=== PATIENT | male | born 1950 | race Caucasian/White ===

== ENCOUNTER → 2019-05-07 11:26 | Outpatient (BNVA) | payer MEDICAID, SELFPAY | PROVIDERS: PCP Nurse Practitioner Family; Visit Provider Nurse Practitioner Family | DX: E11.9 Type 2 diabetes mellitus without complications (principal) | CPT/HCPCS: 80053; 80061; 82044; 83036; 85025 ==

== ENCOUNTER → 2019-10-15 15:58 | Outpatient (BNVA) | payer MEDICAID, SELFPAY | PROVIDERS: PCP Nurse Practitioner Family; Visit Provider Nurse Practitioner Family | DX: I10 Essential (primary) hypertension (principal) | CPT/HCPCS: 80053; 85025 ==

== ENCOUNTER → 2019-12-01 14:51 | Outpatient (BNVA) | payer MEDICAID, SELFPAY | PROVIDERS: PCP Nurse Practitioner Family; Visit Provider Urology | DX: N40.1 Benign prostatic hyperplasia with lower urinary tract symptoms (principal); R97.20 Elevated prostate specific antigen [PSA]; F17.210 Nicotine dependence, cigarettes, uncomplicated | CPT/HCPCS: 81001; 84153 ==

== ENCOUNTER → 2020-05-19 11:14 | Outpatient (BNVA) | payer MEDICAID, SELFPAY | PROVIDERS: PCP Nurse Practitioner Family; Visit Provider Nurse Practitioner Family | DX: R73.9 Hyperglycemia, unspecified (principal); I10 Essential (primary) hypertension; B02.8 Zoster with other complications; F41.9 Anxiety disorder, unspecified; F88 Other disorders of psychological development; E78.2 Mixed hyperlipidemia; L30.4 Erythema intertrigo | CPT/HCPCS: 80053; 80061; 83036; 85025 ==

== ENCOUNTER → 2020-11-30 13:44 | Outpatient (BNVA) | payer MEDICAID, SELFPAY | PROVIDERS: PCP Nurse Practitioner Family; Visit Provider Urology | DX: N40.1 Benign prostatic hyperplasia with lower urinary tract symptoms (principal); R97.20 Elevated prostate specific antigen [PSA] | CPT/HCPCS: 81003; 84153 ==

== ENCOUNTER → 2021-01-09 11:00 | Outpatient (BNVA) | payer MEDICAID, SELFPAY | PROVIDERS: PCP Nurse Practitioner Family; Visit Provider Nurse Practitioner Family | DX: R73.9 Hyperglycemia, unspecified (principal); E78.2 Mixed hyperlipidemia; F88 Other disorders of psychological development; F41.9 Anxiety disorder, unspecified; I10 Essential (primary) hypertension; N40.1 Benign prostatic hyperplasia with lower urinary tract symptoms | CPT/HCPCS: 80053; 80061; 82306; 83036; 84443; 85025 ==

== ENCOUNTER 2021-04-27 17:15 | Emergency (ER) | payer MEDICAID, SELFPAY ==
[2021-04-27 17:37] VITALS: BP 153/83; PULSE 75; RESP 18; TEMP 36.9; O2SAT 96; BMI 29.2
--- NOTE | 2021-04-27 17:54 | XRR_ITS ---
PROCEDURE INFORMATION: Exam: XR Lumbosacral Spine Exam date and time: 04/27/2021 5:54 PM Age: 71 years old Clinical indication: Injury or trauma; Fall; Blunt trauma (contusions or hematomas) TECHNIQUE: Imaging protocol: XR of the lumbosacral spine. Views: 2 or 3 views. COMPARISON: No relevant prior studies available. FINDINGS: Bones/joints: Moderate L5/S1 largely posterior disc space narrowing. Mild productive degenerative endplate changes throughout the spine. Soft tissues: Unremarkable. Vasculature: Scattered aortic atherosclerotic calcifications. XR/XR lumbar spine 2-3V* [id number] IMPRESSION: 1. Moderate L5/S1 largely posterior disc space narrowing. 2. Mild productive degenerative endplate changes throughout the spine. 3. Scattered aortic atherosclerotic calcifications.
--- NOTE | 2021-04-27 17:54 | CTR_ITS ---
PROCEDURE INFORMATION: Exam: CT Head Without Contrast Exam date and time: 04/27/2021 5:54 PM Age: 71 years old Clinical indication: Injury or trauma; Fall; Blunt trauma (contusions or hematomas) TECHNIQUE: Imaging protocol: Computed tomography of the head without contrast. Radiation optimization: All CT scans at this facility use at least one of these dose optimization techniques: automated exposure control; mA and/or kV adjustment per patient size (includes targeted exams where dose is matched to clinical indication); or iterative reconstruction. COMPARISON: No relevant prior studies available. RADIATION DOSE METRICS: Total DLP (mGy-cm): 969.03 FINDINGS: Brain: Mild diffuse white matter disease likely reflecting chronic microvascular ischemic changes. Cerebral ventricles: No ventriculomegaly. Paranasal sinuses: Visualized sinuses are unremarkable. No fluid levels. Mastoid air cells: Visualized mastoid air cells are well aerated. Bones/joints: Unremarkable. No acute fracture. Soft tissues: Unremarkable. CT/CT head wo con* [id number] IMPRESSION: Negative for intracranial hemorrhage or mass effect.
--- NOTE | 2021-04-27 17:54 | XRR_ITS ---
PROCEDURE INFORMATION: Exam: XR Pelvis Exam date and time: 04/27/2021 5:54 PM Age: 71 years old Clinical indication: Injury or trauma; Fall; Blunt trauma (contusions or hematomas); Bilateral; Hip TECHNIQUE: Imaging protocol: XR pelvis. Views: 1 or 2 view. COMPARISON: No relevant prior studies available. FINDINGS: Bones/joints: [id number] osteoarthritis of hips bilaterally. Soft tissues: Unremarkable. XR/XR pelvis 1-2V* [id number] IMPRESSION: Negative for definite fracture or dislocation, rotated technique somewhat limits evaluation, consider further evaluation with a CT scan if concern for fracture remains.
--- NOTE | 2021-04-27 17:54 | CTR_ITS ---
PROCEDURE INFORMATION: Exam: CT Cervical Spine Without Contrast Exam date and time: 04/27/2021 5:54 PM Age: 71 years old Clinical indication: Injury or trauma; Fall; Blunt trauma TECHNIQUE: Imaging protocol: Computed tomography images of the cervical spine without contrast. Radiation optimization: All CT scans at this facility use at least one of these dose optimization techniques: automated exposure control; mA and/or kV adjustment per patient size (includes targeted exams where dose is matched to clinical indication); or iterative reconstruction. COMPARISON: CT head wo con* [id number] 04/27/2021 6:19 PM RADIATION DOSE METRICS: Total DLP (mGy-cm): 960.2 FINDINGS: Vertebrae: No acute fracture. Normal alignment. C2-C3: No significant disc protrusion. No severe spinal canal stenosis. No significant neural foraminal narrowing. C3-C4: No significant disc protrusion. No severe spinal canal stenosis. No significant neural foraminal narrowing. C4-C5: No significant disc protrusion. No severe spinal canal stenosis. No significant neural foraminal narrowing. C5-C6: No significant disc protrusion. No severe spinal canal stenosis. No significant neural foraminal narrowing. C6-C7: No significant disc protrusion. No severe spinal canal stenosis. No significant neural foraminal narrowing. C7-T1: No significant disc protrusion. No severe spinal canal stenosis. No significant neural foraminal narrowing. Soft tissues: Unremarkable. Lungs: Lung apices are normal. CT/CT cervical spin wo con* [id number] IMPRESSION: No acute findings.
--- NOTE | 2021-04-27 18:07 | W.ED.FALL ---
HPI - Fall General: Chief Complaint: Fall Stated Complaint: FLANK PAIN, FALL, GENERALIZED WEAKNESS Time Seen by Provider: 04/27/21 17:56 Source: patient and EMS Mode of arrival: EMS Limitations: other (MR) History of Present Illness: HPI Narrative: Patient presents here from home he had had a fall at home in the bathroom patient is complaining of some head neck low back and hip pain. He has been ambulatory since the fall. History is difficult as he has moderate to severe MR. He has no signs of any major injuries here vitals are normal denies any lower extremity or upper extremity pain Associated symptoms-after fall: Reports headache(s); Denies abdominal pain or chest pain Review of Systems Const: Denies: fever(s), chills, body aches or change in appetite Eyes: Denies: blurry vision or eye discomfort ENMT: Denies: throat pain or dental pain Card: Denies: chest pain Resp: Denies: dyspnea GI: Denies: abdominal pain, nausea, vomiting or diarrhea : Denies: dysuria Musc: Reports: back pain and joint swelling Skin/Breast: Denies: rash Neuro: Reports: headache(s) Psych: Denies: depression Nithin/Lymph: Denies: easy bruising All/Imm: Denies: urticaria PFSH ED PFSH: Medical History Anxiety BPH loc w urin obs/LUTS Developmental mental disorder Elevated PSA Hypertension Mixed hyperlipidemia Surgical History History of amputation of finger of right hand History of surgery on arm Family History Brother Diabetes Hypertension Social History Smoking and tobacco status: current every day smoker cigarettes Packs smoked per day: 0.5 Years cigarettes smoked: 40 Second hand smoke exposure: No Alcohol intake: never Adopted: No Caregiver/support person: Yes (brother Tenzin Cordova) Marital status: Single service: No Current occupational status: disabled History of recent travel: No Current gender identity: Male Physical Exam Const: COMMON NORMALS: no acute distress, patient oriented x3 and healthy appearing HENMT: COMMON NORMALS: normocephalic and atraumatic HEAD & SCALP: normocephalic and atraumatic Eye: COMMON NORMALS: Equal, round and reactive pupils present and EOMs intact bilaterally PUPIL: Yes Equal, round and reactive pupils present Neck/C-Spine: COMMON NORMALS: full ROM and supple Chest: COMMONS NORMALS: normal inspection of the chest and normal palpation of entire chest wall Resp: COMMON NORMALS: normal respiratory effort, No retractions, No use of accessory muscles and clear to auscultation bilaterally AUSCULTATION: clear to auscultation bilaterally Cardio: COMMON NORMALS: regular rate, regular rhythm and No murmurs present (Cardio) RATE: regular rate RHYTHM: regular rhythm GI: COMMON NORMALS: Normal to inspection, nondistended, normoactive bowel sounds present, Soft to palpation, non-tender and no masses PALPATION: Yes Soft to palpation Extremity: COMMON NORMALS: normal to inspection and full ROM Neuro: COMMON NORMALS: patient oriented x3, moves all extremities and no focal motor deficits Psych: COMMON NORMALS: mental status grossly normal, Normal thought process present and cooperative THOUGHT PROCESS: Normal thought process present Skin: COMMON NORMALS: no rashes or lesions noted and no wounds GENERAL SKIN EXAM: no rashes or lesions noted Course Vital Signs: Vital signs: Vital Signs Temperature 98.4 F 04/27/21 17:37 Pulse Rate 75 04/27/21 17:37 Respiratory Rate 18 04/27/21 17:37 Blood Pressure 153/83 04/27/21 17:37 Pulse Oximetry 96 04/27/21 17:37 MDM - Fall MDM Narrative: Medical decision making narrative: Patient presents here with pelvic pain along with head pain after a fall patient is ambulatory here x-ray CTs are all normal he is able ambulate halls any problems no signs of fractures he is stable for discharge is to follow-up PCP and return if worsening. Discharge Plan Discharge Patient Disposition: Home Clinical Impression: Fall Qualifiers: Encounter type: initial encounter Qualified Code(s): W19.XXXA - Unspecified fall, initial encounter Condition: Stable Prescriptions: No Action amlodipine 2.5 mg tablet See Rx Instructions .ROUTE .COMPLEX Qty: 30 RF: 5 atorvastatin 40 mg tablet See Rx Instructions .ROUTE .COMPLEX Qty: 30 RF: 5 lisinopril 20 mg tablet See Rx Instructions .ROUTE .COMPLEX Qty: 30 RF: 5 sertraline 50 mg tablet See Rx Instructions .ROUTE .COMPLEX Qty: 30 RF: 5 tamsulosin 0.4 mg capsule See Rx Instructions .ROUTE .COMPLEX Qty: 30 RF: 5 ergocalciferol (vitamin D2) 1,250 mcg (50,000 unit) capsule See Rx Instructions .ROUTE .COMPLEX Qty: 4 RF: 2 finasteride 5 mg tablet See Rx Instructions .ROUTE .COMPLEX Qty: 90 RF: 3 Discharge Orders: Discharge ED (Routine); Ordered 04/27/21 Ordered By: Stephenie Rosario Referrals: Penny Barahona FNP [Primary Care Provider] - 1-3 days Discharge Diet: Advance as tolerated Discharge Activity: Resume usual activity Patient Instructions: Fall Prevention (ED) Coding Level of Care Code ED Diesel Service Apprentice for Hemal Fwd Exam Comprehensive
--- NOTE | 2021-04-27 19:33 | PC.NURSE ---
patient able to ambulate with assistance from walker. Patient was mildly unsteady without using walker.
== END 2021-04-27 20:00 | disposition home or self-care (01) ==
PROVIDERS: Emergency Provider Emergency Medicine; PCP Nurse Practitioner Family
DX: M54.50 Low back pain, unspecified (principal); R51.9 Headache, unspecified; M54.2 Cervicalgia; W19.XXXA Unspecified fall, initial encounter; Y92.002 Bathroom of unspecified non-institutional (private) residence as the place of occurrence of the external cause; I10 Essential (primary) hypertension; E78.2 Mixed hyperlipidemia; F17.210 Nicotine dependence, cigarettes, uncomplicated
CPT/HCPCS: 70450; 72100; 72125; 72170; 99283

== ENCOUNTER → 2022-01-24 13:16 | Outpatient (BNVA) | payer MEDICAID, SELFPAY | PROVIDERS: PCP Nurse Practitioner Family; Visit Provider Nurse Practitioner Family | DX: R73.9 Hyperglycemia, unspecified (principal); E78.2 Mixed hyperlipidemia; I10 Essential (primary) hypertension; F88 Other disorders of psychological development; M79.89 Other specified soft tissue disorders | CPT/HCPCS: 80053; 80061; 81000; 82306; 82607; 83036; 83735; 84439; 84443; 85025 ==

== ENCOUNTER 2022-09-13 18:36 | Inpatient (IN) | payer MEDICAID, SELFPAY ==
[2022-09-13 18:58] VITALS: BP 100/72; PULSE 89; RESP 18; TEMP 36.8; O2SAT 96
[2022-09-13 19:03] VITALS: BP 100/72; PULSE 88; RESP 18; O2SAT 98
--- NOTE | 2022-09-13 19:04 | CTR_ITS ---
PROCEDURE INFORMATION: Exam: CT Head Without Contrast Exam date and time: 09/13/2022 7:27 PM Age: 72 years old Clinical indication: Syncope and collapse TECHNIQUE: Imaging protocol: Computed tomography of the head without contrast. Sagittal and coronal reformatted images were created and reviewed. Radiation optimization: All CT scans at this facility use at least one of these dose optimization techniques: automated exposure control; mA and/or kV adjustment per patient size (includes targeted exams where dose is matched to clinical indication); or iterative reconstruction. REPORTING DATA: Count of CT and Cardiac NM exams in prior 12 months: This patient has received 0 known CTs and 0 known cardiac nuclear medicine studies in the 12 months prior to the current study. COMPARISON: CT head wo con* [id number] 04/27/2021 6:19 PM RADIATION DOSE METRICS: Total DLP (mGy-cm): 1118 FINDINGS: Brain: No acute intracranial hemorrhage. No acute infarct. No intra-axial or extra-axial masses. Saez-white matter differentiation is preserved. No cerebral edema. No extra-axial fluid collections. No midline shift. No evidence for Chiari 1 malformation. Stable mild atrophy of the brain parenchyma. Stable mildly decreased attenuation in the deep white matter, consistent with mild chronic microangiopathic change. Cerebral ventricles: No hydrocephalus. Paranasal sinuses: Visualized paranasal sinuses are clear. Mastoid air cells: Visualized mastoid air cells are clear. Orbital cavities: No acute abnormality in the visualized orbits. Bones/joints: No acute fracture. Soft tissues: The extracranial soft tissues are unremarkable. CT/CT head wo con* [id number] IMPRESSION: 1. No acute abnormality of the brain. 2. Stable mild atrophy of the brain parenchyma. 3. Stable mild chronic white matter microangiopathic change. 4. Incidental/nonacute findings are listed in the report.
--- NOTE | 2022-09-13 19:04 | ECG_ITS ---
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 Measurements Intervals [place] Rate: 92 P: 15 IA: 166 QRS: 30 QRSD: 108 T: 44 QT: 365 QTc: 453 Interpretive Statements SINUS RHYTHM NONSPECIFIC T-WAVE ABNORMALITY Compared to ECG 10/31/2017 08:03:45 T-wave abnormality now present Electronically Signed On 09-14-2022 10:28:30 CDT by Rodriguez Alejandra M.D. [email or web address] memorial hospitalBathurst Resources Limitedmarion [email or web address].VHT/store/OM/[id number]
--- NOTE | 2022-09-13 19:04 | XRR_ITS ---
PROCEDURE INFORMATION: Exam: XR Chest Exam date and time: 09/13/2022 7:13 PM Age: 72 years old Clinical indication: Pain; Chest pressure; Additional info: Cp TECHNIQUE: Imaging protocol: Radiologic exam of the chest. Views: 1 view. COMPARISON: No relevant prior studies available. FINDINGS: Lungs: Ill-defined ground-glass opacity in the lateral right mid lung suspicious for pneumonitis or possibly an atypical pneumonia. Pleural spaces: No pleural effusion. No pneumothorax. Heart/Mediastinum: Cardiac silhouette is markedly enlarged. Mediastinal contours are unremarkable. Vasculature: Vascular calcifications in the aorta. The aorta is tortuous. Bones/joints: Unremarkable for age. XR/XR chest 1V portable [id number] IMPRESSION: 1. Ill-defined ground-glass opacity in the lateral right mid lung suspicious for pneumonitis or possibly an atypical pneumonia. Recommend clinical correlation. Recommend followup chest imaging to insure resolution of these findings. 2. Incidental/nonacute findings are listed in the report.
[2022-09-13] MEDS: sodium chloride 0.9% 1,000 ML 999 ML IV (19:16)
--- NOTE | 2022-09-13 19:22 | ED_ITS ---
HPI - Syncope General: Chief Complaint: Syncope Stated Complaint: syncope Time Seen by Provider: 09/13/22 18:47 Source: EMS Mode of arrival: EMS Limitations: physical limitation History of Present Illness: 72-year-old male has a history of severe MR his baseline he only answers yes and no questions he lives with his brother brother called EMS today because he had a syncopal event per EMS he was hypotensive with him his blood pressure here has been normal when asked if he is hurting where he says now he is resting comfortably here no signs of any major injuries his vitals are normal no history was really available from him due to his MR Review of Systems General: Reports: ROS unobtainable due to mental status PFSH ED PFSH: Medical History Anxiety BPH loc w urin obs/LUTS Developmental mental disorder Elevated PSA Hypertension Mixed hyperlipidemia Surgical History History of amputation of finger of right hand History of surgery on arm Family History Brother Diabetes Hypertension Social History Smoking and tobacco status: current every day smoker (6 cigarettes/day) cigarettes Packs smoked per day: 0.5 Years cigarettes smoked: 40 Second hand smoke exposure: No Alcohol intake: never Substance/Drug Use: never Adopted: No Caregiver/support person: Yes (brother Tenzin Cordova) Lives independently: Yes Marital status: Single service: No Current occupational status: disabled Current gender identity: Male Course Vital Signs: Vital signs: Vital Signs Temperature 98.3 F 09/13/22 18:58 Pulse Rate 97 09/13/22 19:49 Respiratory Rate 16 09/13/22 19:49 Blood Pressure 119/79 09/13/22 19:49 Pulse Oximetry 90 09/13/22 19:49 Oxygen Delivery Me thod Nasal Cannula 09/13/22 19:03 Oxygen Flow Rate 3 09/13/22 19:03 MDM - Syncope Medical Decision Making 72-year-old male presented here with a syncopal event does have some mild anemia from his baseline along with an elevated BUN to creatinine ratio his rectal exam here did show some black stools and is Hemoccult positive likely an upper GI bleed his vital signs here been stable spoke to hospitalist and surgeon will admit. Medical Records I reviewed the patient's medical records. Lab Data I reviewed the patient's lab results. 09/13/22 19:15 09/13/22 19:15 Radiology Impressions Chest X-Ray 09/13/22 19:04 IMPRESSION: 1. Ill-defined ground-glass opacity in the lateral right mid lung suspicious for pneumonitis or possibly an atypical pneumonia. Recommend clinical correlation. Recommend followup chest imaging to insure resolution of these findings. 2. Incidental/nonacute findings are listed in the report. Head CT 09/13/22 19:04 IMPRESSION: 1. No acute abnormality of the brain. 2. Stable mild atrophy of the brain parenchyma. 3. Stable mild chronic white matter microangiopathic change. 4. Incidental/nonacute findings are listed in the report. Laboratory Results WBC 13.7 10^3/uL (4.0-10.0) H 09/13/22 19:15 RBC 2.94 10^6/uL (4.1-5.3) L 09/13/22 19:15 Hgb 9.5 g/dL (11.7-16.6) L 09/13/22 19:15 Hct 28.9 % (42.0-52.0) L 09/13/22 19:15 MCV 98.3 fl (80-94) H 09/13/22 19:15 MCH 32.3 pg (28.0-34.0) 09/13/22 19:15 MCHC 32.9 g/dL (30.0-36.0) 09/13/22 19:15 RDW 13.2 % (12.1-15.1) 09/13/22 19:15 Plt Count 172 10^3/cmm (130-400) 09/13/22 19:15 MPV 11.0 fL (7.4-10.4) H 09/13/22 19:15 Neut % (Auto) 86.4 % 09/13/22 19:15 Lymph % (Auto) 7.5 % 09/13/22 19:15 [place] % (Auto) 4.8 % 09/13/22 19:15 Eos % (Auto) 0.4 % 09/13/22 19:15 Baso % (Auto) 0.4 % 09/13/22 19:15 Neut # (Auto) 11.83 10^3/uL (1.8-7.7) H 09/13/22 19:15 Lymph # (Auto) 1.0 10^3/uL (0.8-4.8) 09/13/22 19:15 [place] # (Auto) 0.7 10^3/uL (0.2-0.9) 09/13/22 19:15 Eos # (Auto) 0.1 10^3/uL (0.0-0.8) 09/13/22 19:15 Baso # (Auto) 0.1 10^3/uL (0.0-0.1) 09/13/22 19:15 Nucleated RBC % (auto) 0 % 09/13/22 19:15 Nucleated RBCs # 0.0 /100WBC 09/13/22 19:15 PT 14.80 SECONDS (12.1-14.9) 09/13/22 19:15 INR 1.13 (0.8-1.2) 09/13/22 19:15 Sodium 138 mmol/L (136-145) 09/13/22 19:15 Potassium 4.2 mmol/L (3.5-5.1) 09/13/22 19:15 Chloride 107 mmol/L (98-107) 09/13/22 19:15 Carbon Dioxide 22 mmol/L (22-29) 09/13/22 19:15 Anion Gap 13.2 (5-19) 09/13/22 19:15 BUN 40 mg/dL (8-23) H 09/13/22 19:15 Creatinine 0.7 mg/dL (0.7-1.2) 09/13/22 19:15 GFR Calculation Not Reportable 09/13/22 19:15 Glucose 120 mg/dL (65-115) H 09/13/22 19:15 Calculated Osmolality 297 mOsm/kg (285-295) H 09/13/22 19:15 Lactic Acid 1.9 mmol/L (0.5-2.2) 09/13/22 19:15 Calcium 8.1 mg/dL (8.5-10.5) L 09/13/22 19:15 Total Bilirubin 0.2 mg/dL (0.15-1.2) 09/13/22 19:15 AST 12 U/L (0-40) 09/13/22 19:15 ALT 7 U/L (0-41) 09/13/22 19:15 Alkaline Phosphatase 38 U/L (40-130) L 09/13/22 19:15 Creatine Kinase 31 U/L (39-308) L 09/13/22 19:15 Troponin T Baseline 8 ng/L (0-15) 09/13/22 19:15 Total Protein 5.4 g/dL (6.6-8.7) L 09/13/22 19:15 Albumin 3.5 g/dL (3.5-5.2) 09/13/22 19:15 Globulin 1.9 g/dL (1.3-4.6) 09/13/22 19:15 EKG Data EKG 1: I personally reviewed and interpreted this EKG as follows: EKG interpretation date: 09/13/22 EKG interpretation time: 19:43 Interpretation: nsr hr [address] or t wave abnormalities qrs 108 qtc 415 Discharge Plan Discharge Patient Disposition: Admitted As Inpatient Clinical Impression: Syncope, Acute upper GI bleed Condition: Stable Prescriptions: No Action ibuprofen 600 mg tablet 600 mg PO TID PRN (Reason: pain) Qty: 20 0RF finasteride 5 mg tablet See Rx Instructions .ROUTE .COMPLEX Qty: 90 3RF Dose Instruction: TAKE ONE TABLET BY MOUTH EVERY DAY Rx Instructions: TAKE ONE TABLET BY MOUTH EVERY DAY atorvastatin 40 mg tablet See Rx Instructions .ROUTE .COMPLEX Qty: 30 0RF Dose Instruction: TAKE ONE TABLET BY MOUTH EVERY DAY Rx Instructions: TAKE ONE TABLET BY MOUTH EVERY DAY sertraline 50 mg tablet See Rx Instructions .ROUTE .COMPLEX Qty: 30 0RF Dose Instruction: TAKE ONE TABLET BY MOUTH EVERY DAY Rx Instructions: TAKE ONE TABLET BY MOUTH EVERY DAY amlodipine 2.5 mg tablet See Rx Instructions .ROUTE .COMPLEX Qty: 30 0RF Dose Instruction: TAKE ONE TABLET BY MOUTH EVERY DAY Rx Instructions: TAKE ONE TABLET BY MOUTH EVERY DAY tamsulosin 0.4 mg capsule See Rx Instructions .ROUTE .COMPLEX Qty: 30 0RF Dose Instruction: TAKE ONE CAPSULE BY MOUTH DAILY Rx Instructions: TAKE ONE CAPSULE BY MOUTH DAILY ergocalciferol (vitamin D2) 1,250 mcg (50,000 unit) capsule See Rx Instructions .ROUTE .COMPLEX Qty: 4 0RF Dose Instruction: TAKE ONE CAPSULE BY MOUTH WEEKLY Rx Instructions: TAKE ONE CAPSULE BY MOUTH WEEKLY lisinopril 20 mg tablet See Rx Instructions .ROUTE .COMPLEX Qty: 30 0RF Dose Instruction: TAKE ONE TABLET BY MOUTH EVERY DAY Rx Instructions: TAKE ONE TABLET BY MOUTH EVERY DAY Referrals: Penny Barahona FNP [Primary Care Provider] - Coding Level of Care Code ED Infertility Nurse for Hemal Vital
[2022-09-13 19:33] LABS: Basophils # 0.1 10^3/uL (0.0-0.1); Basophils % 0.4 %; Eosinophils # 0.1 10^3/uL (0.0-0.8); Eosinophils % 0.4 %; Hematocrit 28.9 % (42.0-52.0); Hemoglobin 9.5 g/dL (11.7-16.6); Lymphocytes % 7.5 %; Mean Corpuscular HGB Conc 32.9 g/dL (30.0-36.0); Mean Corpuscular Hemoglobin 32.3 pg (28.0-34.0); Mean Corpuscular Volume 98.3 fl (80-94); Monocytes # 0.7 10^3/uL (0.2-0.9); Monocytes % 4.8 %; Neutrophils # 11.83 10^3/uL (1.8-7.7); Neutrophils % 86.4 %; Nucleated Red Blood Cells % 0 %; Platelet Count 172 10^3/cmm (130-400); Red Blood Count 2.94 10^6/uL (4.1-5.3); Red Cell Distribution Width 13.2 % (12.1-15.1); White Blood Count 13.7 10^3/uL (4.0-10.0)
[2022-09-13 19:45] LABS: INR 1.13 (0.8-1.2)
[2022-09-13 19:49] VITALS: BP 119/79; PULSE 97; RESP 16; O2SAT 90
[2022-09-13 19:54] LABS: Troponin(5th) Baseline 8 ng/L (0-15)
[2022-09-13 19:56] LABS: Alanine Aminotransferase 7 U/L (0-41); Albumin Level 3.5 g/dL (3.5-5.2); Alkaline Phosphatase 38 U/L (40-130); Aspartate Amino Transferase 12 U/L (0-40); Blood Urea Nitrogen 40 mg/dL (8-23); Calcium 8.1 mg/dL (8.5-10.5); Carbon Dioxide 22 mmol/L (22-29); Creatine Phosphokinase 31 U/L (39-308); Globulin 1.9 g/dL (1.3-4.6); Glucose 120 mg/dL (65-115); Total Bilirubin 0.2 mg/dL (0.15-1.2); Total Protein 5.4 g/dL (6.6-8.7)
[2022-09-13 20:12] LABS: Lactic Sepsis W/Reflex 1.9 mmol/L (0.5-2.2)
[2022-09-13 20:20] LABS: Anion Gap 13.2 (5-19); Chloride 107 mmol/L (98-107); Potassium 4.2 mmol/L (3.5-5.1); Sodium 138 mmol/L (136-145)
[2022-09-13 20:24] LABS: Osmolality Calculated 297 mOsm/kg (285-295)
--- NOTE | 2022-09-13 21:04 | ECG_ITS ---
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 Measurements Intervals [place] Rate: 99 P: 9 ID: 152 QRS: 28 QRSD: 100 T: 16 QT: 348 QTc: 448 Interpretive Statements SINUS RHYTHM LOW QRS VOLTAGE IN PRECORDIAL LEADS [QRS DEFLECTION < 1.0 mV IN CHEST LEADS] NONSPECIFIC T-WAVE ABNORMALITY Compared to ECG 09/13/2022 19:43:18 Low QRS voltage now present T-wave abnormality still present Electronically Signed On 09-14-2022 10:29:26 CDT by Rodriguez Alejandra M.D. [id number]
[2022-09-13 21:08] VITALS: BP 112/67; O2SAT 94
[2022-09-13 21:13] LABS: Add Urine Microscopic? NO; Charge for UA Resulting for Rev
[2022-09-13] MEDS: pantoprazole 40 mg SDV 80 MG IVP (21:16)
[2022-09-13] MEDS: pantoprazole 40 MG in sodium chloride 0.9% (plus) 100 ML 20 MG IV (21:17)
[2022-09-13 21:26] LABS: Bilirubin Urine Neg (Negative); Blood Urine Neg (Negative); Glucose Urine UA Norm (Normal); Ketones Urine Negative (Negative); Leukocyte Esterase Urine Negative (Negative); Nitrate Urine Negative (Negative); Protein Urine Neg (Negative); Specific Gravity, Urine 1.015 (1.005-1.030); Urine Appearance Clear (CLEAR); Urine Color Yellow (Yellow); Urobilinogen Urine Norm (Negative); pH Urine 6 (5-7)
--- NOTE | 2022-09-13 21:35 | P.HP_ITS ---
Providers/Chief Complaint Primary Care Provider: MAURICE Ackerman Chief Complaint: syncope History of Present Illness Malik Cordova is a 72 year old male With past medical history of anxiety, BPH, developmental mental disorder/intellectual disability, hypertension, hyperlipidemia presented to the hospital today via EMS for complaint of a fall. Patient's brother reported to the ER that patient had low blood pressure and usually it is normal and patient does live with his brother. Apparently he passed out?. When seen in the room patient answers yes to every question asked. He is unable to provide any kind of history due to baseline mental status. No family is available at bedside. History was obtained from ER physician. Unknown circumstances of the fall or syncopal event. Patient is a current everyday smoker. On arrival blood pressure 119/79, respiratory 16, pulse 97, temperature 98.3, saturating 3 L 90% on nasal cannula. On review of labs BUN 40, creatinine 0.7. Rectal exam was performed by the ER which did show black stools and it was Hemoccult positive. Most likely indicating a GI bleed. Case was discussed with Dr. Beebe who plans to take patient for EGD in a.m. Chest x-ray shows ill-defined groundglass opacity in the lateral right midlung suspicious for pneumonitis or possibly atypical pneumonia. Head CT negative for acute intracranial pathology. WBC 13.7, hemoglobin 9.5, platelet 172, sodium 138, potassium 4.2, creatinine 0.7, lactic acid 1.9, baseline troponin 8. EKG showed normal sinus rhythm. Unable to obtain review of systems due to mental status. Medications/Allergies Home Medications Medication Instructions Recorded Confirmed Last Taken Type ibuprofen 600 mg tablet 600 mg PO TID PRN pain #20 tabs 05/09/21 04/25/22 Unknown Rx finasteride 5 mg tablet See Rx Instructions .Route 03/22/22 04/25/22 Unknown Rx .COMPLEX #90 tabs amlodipine 2.5 mg tablet See Rx Instructions .Route 09/05/22 Unknown Rx .COMPLEX #30 tabs atorvastatin 40 mg tablet See Rx Instructions .Route 09/05/22 Unknown Rx .COMPLEX #30 tabs ergocalciferol (vitamin D2) 1,250 See Rx Instructions .Route 09/05/22 Unknown Rx mcg (50,000 unit) capsule .COMPLEX #4 caps lisinopril 20 mg tablet See Rx Instructions .Route 09/05/22 Unknown Rx .COMPLEX #30 tabs sertraline 50 mg tablet See Rx Instructions .Route 09/05/22 Unknown Rx .COMPLEX #30 tabs tamsulosin 0.4 mg capsule See Rx Instructions .Route 09/05/22 Unknown Rx .COMPLEX #30 caps Allergies Allergy/AdvReac Type Severity Reaction Status Date / Time No Known Allergies Allergy Verified 04/25/22 16:49 PFSH Acute PFSH: Medical History Anxiety BPH loc w urin obs/LUTS Developmental mental disorder Elevated PSA Hypertension Mixed hyperlipidemia Surgical History History of amputation of finger of right hand History of surgery on arm Family History Brother Diabetes Hypertension Social History Smoking and tobacco status: current every day smoker (6 cigarettes/day) cigarettes Packs smoked per day: 0.5 Years cigarettes smoked: 40 Second hand smoke exposure: No Alcohol intake: never Substance/Drug Use: never Adopted: No Caregiver/support person: Yes (brother Tenzin Cordova) Lives independently: Yes Marital status: Single service: No Current occupational status: disabled Current gender identity: Male Vitals/I&O/Wt Last Vital Signs Temp 98.3 F 09/13/22 18:58 Pulse 97 09/13/22 19:49 Resp 16 09/13/22 19:49 BP 112/67 09/13/22 21:08 Pulse Ox 94 09/13/22 21:08 O2 Del Method Nasal Cannula 09/13/22 19:03 O2 Flow Rate 3 09/13/22 19:03 09/13/22 09/13/22 09/13/22 06:59 14:59 22:59 Intake Total 1000 / 1000 Balance 1000 / 1000 Physical Exam Narrative: General: Alert and awake however unable to assess for orientation due to mental status at baseline. Answers yes to every question asked. Appears comfortable sitting up in bed no acute respiratory distress. Is saturating 97% on room air., HEENT: Normocephalic, atraumatic, EOMI, Cardio: Regular rate rhythm, normal S1-S2 Respiratory: Clear to auscultation bilaterally GI: Abdomen soft, nontender, bowel sounds + Extremities: Within normal limits Data 09/13/22 22:13 09/13/22 19:15 A&P Assessment and plan (1) Syncope: (2) Acute upper GI bleed: (3) Mixed hyperlipidemia: (4) Developmental mental disorder: (5) Hypertension: Qualifiers: Hypertension type: essential hypertension Qualified Code(s): I10 - Essential (primary) hypertension (6) Anxiety: (7) Smoker: Plan #Hypotension, syncopal event possibly due to upper GI bleed #Melanotic stool, FOBT positive on rectal exam #Intellectual disability #Hypertension #Anxiety #BPH ? Hemoglobin 9.5. Will trend H&H every 8 hours. Monitor for bowel movements ? We will place on IV fluids normal saline 125 cc/h ? Check vitals every 4 hours. ? Admit to medical surgical floor at this time ? Place in cardiac telemetry to rule out occult arrhythmia ? Attempted check orthostatic vitals if patient will cooperate or follow commands at this time he is unable to do any of that. ? Hold off on antihypertensives amlodipine 2.5 daily. Lisinopril 20 daily. Hold tamsulosin at this time ? We will need to confirm home medications from pharmacy in a.m. ? Vitals are currently stable. 106/59, pulse 80, respiratory 18, temp 98.6 ? Placed on Protonix drip ? N.p.o. for EGD in a.m. ? General surgery consulted ? Attempted contact brother to obtain collateral information -Head CT negative for acute pathology -Leukocytosis present. Reactive versus true infection. Ill-defined groundglass opacity in lateral right midlung suspicious for pneumonitis or possibly atypical pneumonia. I will place on ceftriaxone and azithromycin at this time as I cannot obtain any history from the patient. Question of aspiration? ? Check procalcitonin. De-escalate antibiotics as clinically warranted -Troponins negative x2 ? Check echo transfuse < 7 Full code SCDs, hold off on pharmacological DVT prophylaxis at this time Attestations Medical Necessity Statement*: Greater than 2 midnight stay for management of possible upper GI bleed versus pneumonia. Coding Level of Care Code G0425 (30 min) TH Encounter Time (min): 45 Patient seen via Telehealth in the acute care setting (hospital or ED location) by agreement and consent of patient or patient pharmaceutical sales representative. Telehealth technology used during the visit includes video and audio. This patient encounter is appropriate and reasonable under the circumstances given the patient?s particular presentation at this time. The patient has been advised of the potential risks and limitations of this mode of treatment (including but not limited to the absence of in-person examination at this time) and has agreed to be treated by an off-site physician for this visit. If deemed clinically necessary from this telehealth visit, or if condition or consent for telehealth visit changes, an in-person visit will be arranged. For this encounter, total time for the origination of telehealth care on this date is as shown. Diagnoses Syncope R55 Acute upper GI bleed K92.2 Mixed hyperlipidemia E78.2 Developmental mental disorder F88 Hypertension I10 Hypertension type: essential hypertension Anxiety F41.9 Smoker F17.200
[2022-09-13 21:48] LABS: Troponin 5 2HR 8.98 ng/L (0-15)
[2022-09-13 22:09] LABS: Troponin 5 2HR Delta 0.98 ABS# (0-10)
[2022-09-13 22:26] LABS: Hematocrit 29.6 % (42.0-52.0); Hemoglobin 9.4 g/dL (11.7-16.6)
[2022-09-13 22:37] VITALS: BP 107/71; PULSE 86; RESP 16; O2SAT 98
[2022-09-13 23:23] VITALS: BP 106/59; PULSE 80; RESP 18; TEMP 37; O2SAT 94
[2022-09-14] VITALS (11 sets, daily range): BP systolic 90–127; BP diastolic 60–78; PULSE 66–98; RESP 15–73; TEMP 36–37.1; O2SAT 92–97
--- NOTE | 2022-09-14 01:04 | USCV_ITS ---
Malik Cordova Age: 72 Gender: M : 1950 Exam Date: 09/14/2022 02:08 Ordering Phys: Alexandra Ferreira MD Technologist: [place] [facility] [place]: syncope. BP: 106 / 59 HR: 74 Rhythm: Sinus Technical Quality: Adequate MEASUREMENTS (Male / Female) Normal Values 2D ECHO LVOT Diameter 2.1 cm LV Ejection Fraction MOD 2C 49.2 % LV Ejection Fraction 2C AL 49.0 % LA Diameter 4.3 cm LA Width 5.3 cm LA Height 6.9 cm RA Width 5.5 cm RA Height 6.4 cm Aorta at Sinotubular Diameter 4.0 cm IVC Diameter 1.7 cm M-MODE Aortic Annulus Diameter 4.3 cm LA Ao Ratio MM 1.1 MV E Point Septal Separation 0.6 cm DOPPLER AV Peak Velocity 135.0 cm/s LVOT Peak Velocity 89.0 cm/s AV Area Cont Eq vti 2.8 cm squared AV Area Cont Eq pk 2.4 cm squared MV Area PHT 3.5 cm squared Mitral E to A Ratio 0.8 MV E' Velocity 34.0 cm/s Mitral E to MV E' Ratio 5.7 Mitral E to LV E' Lateral Ratio 5.1 Mitral E to LV E' Septal Ratio 6.4 TV Peak E Velocity 61.0 cm/s FINDINGS Left Ventricle Left ventricle is normal in size. LV systolic function is normal with EF of 50 to 55%. No regional wall motion normalities are seen. Grade 1 diastolic dysfunction Right Ventricle Normal in size and function Right Atrium Normal in size Left Atrium Dilated Mitral Valve Structurally normal mitral valve. Trace mitral regurgitation. Aortic Valve Aortic valve is thickened. Can not rule out bicuspid valve. No significant stenosis or regurgitation. Tricuspid Valve Trace tricuspid regurgitation. Insufficient TR jet to calculate RVSP. Pulmonic Valve Trace pulmonic regurgitation Pericardium Trace pericardial effusion Aorta Aortic root is dilated. Aorta is dilated IVC Appears to be normal CONCLUSIONS LV systolic function is normal with EF of 50 to 55%. Grade 1 diastolic dysfunction Dilated left atrium Trace mitral regurgitation Trace tricuspid regurgitation Aortic valve is thickened. Cannot rule out bicuspid valve. Trace pericardial effusion Aortic root is dilated. Aorta is dilated. No comparison studies are available Rodriguez Alejandra MD (Electronically Signed) Final Date: 14 September 2022 15:22 S
--- NOTE | 2022-09-14 01:04 | ECG_ITS ---
[facility] Test Date: 2022-09-14 Pat Name: Malik Cordova Department: Room: 250 Gender: Male Service Secretary: : 1950 Requested By: Stephenie Rosario Order Number: [id number] Juaquin MD: Rodriguez Alejandra M.D. Measurements Intervals [place] Rate: 76 P: 4 UT: 160 QRS: 62 QRSD: 105 T: -3 QT: 305 QTc: 344 Interpretive Statements SINUS RHYTHM NONSPECIFIC T-WAVE ABNORMALITY Compared to ECG 09/13/2022 21:12:18 No significant changes Electronically Signed On 09-14-2022 10:29:12 CDT by Rodriguez Alejandra M.D. [id number]
[2022-09-14 02:36] LABS: Hematocrit 26.4 % (42.0-52.0); Hemoglobin 8.4 g/dL (11.7-16.6)
[2022-09-14] MEDS: pantoprazole 40 MG in sodium chloride 0.9% (plus) 100 ML 20 MG IV ×5 (02:43→22:58)
[2022-09-14 03:01] LABS: Lactic Sepsis W/Reflex 0.9 mmol/L (0.5-2.2)
[2022-09-14 03:02] LABS: Troponin 5 6HR 10.49 ng/L (0-15)
[2022-09-14 03:12] LABS: Procalcitonin 0.07 ng/mL (0-0.5); Thyroid Stimulating Hormone 2.64 uIU/mL (0.27-4.20); Troponin 5 6HR Delta 2.49 ng/L (0-12)
[2022-09-14] MEDS: sodium chloride 0.9% 1,000 ML 125 ML IV ×3 (03:21→21:51)
[2022-09-14] MEDS: azithromycin 500 MG in sodium chloride 0.9% 250 ML 250 MG IV (03:21)
[2022-09-14] MEDS: cefTRIAXone 1,000 MG in sodium chloride 0.9% (plus) 50 ML 100 MG IV (04:39)
--- NOTE | 2022-09-14 09:10 | PC.PHAR ---
PT UNABLE TO VERIFY MEDS- CALLING PHARMACY WHEN OPEN TO VERIFY LAST FILLED/ PICKED UP
[2022-09-14 09:18] LABS: Hematocrit 24.4 % (42.0-52.0)
--- NOTE | 2022-09-14 10:23 | PC.CHAP ---
Pastoral Care Encounter/Spiritual Assessment Type of Contact [] Declined cigarette stamper visit [] Patient/Family/Request visit [] Outpatient visit [] Follow-up visit [] Physician referral [] Code/Alert [x] Routine visit [] Staff referral [] Actively dying [] Patient sleeping [x] Family support [] [] Out of room [] Palliative care [] [] Receiving care in room [] Pre-surgical visit [] Trauma [] Long length of stay [] ICU visit [] Other: Relational/Emotional Strength [x] Patient feels connected with others/family/visitors/staff [] Distress [] Loneliness/isolation [] Abandonment Spirituality of Patient [x] Person of Falguni [] Attends Mosque of their Falguni [] Believes in Prayer [] Reads Bible or Uatsdin materials [] There are Spiritual issues to be addressed Painter Mirror Interventions [x] Prayer [x Active listening [] Non-anxious presence [] Spiritual/emotional support [] Crisis/trauma care [] Spiritual counseling [] Bereavement support [] Provided bereavement packet [] Provided Bible/devotional materials [] Provided toy/stuffed animal, coloring book to patient or family member [] Provided Communion [] Anointing/[place] [] Salvation x[x] Completed spiritual assessment [] Other: Impact on Illness or Injury [] Angry [] Fearful [] Anxious [] Often cries [] Exhaustion [] Unable to work [] Unable to attend baptist [] Unable to walk/stand [] Unable to read [] Unable to drive [] Unable to eat/drink [] Unable to sleep [] Unable to be with family [] Patient intubated [] Other: Summary Time spent with patient 5 min
--- NOTE | 2022-09-14 12:12 | P.PN_ITS ---
Subjective Subjective: Patient was seen and examined this morning, it is very difficult to hold conversation with him, usually, given answer in yes and no. Medications: Medication Review Details: Generic Name Dose Route Start Last Admin Trade Name Kamila PRN Reason Stop Dose Admin Pantoprazole Ludyu m 40 mg/ 100 mls @ 20 mls/ hr 09/13/22 21:00 09/14/22 13:16 Sodium Chloride IV 8 mg/hr .Q5H KAREN 20 mls/hr Administration 8 MG/HR Sodium Chloride 1,000 mls @ 125 m ls/hr 09/14/22 01:00 09/14/22 13:20 Sodium Chloride 0.9% IV 125 mls/hr .Q8H KAREN Administration Ceftriaxone Sodium 1,000 mg/ 50 mls @ 100 mls/ hr 09/14/22 01:00 09/14/22 05:53 Sodium Chloride IV Infused Q24H KAREN Infusion Protocol Azithromycin 500 m g/ Sodium 250 mls @ 250 mls /hr 09/14/22 01:00 09/14/22 04:38 Chloride IV Infused Q24H KAREN Infusion Protocol Vitals/I&O/Wt Last Vital Signs Temp 98.5 F 09/14/22 07:13 Pulse 75 09/14/22 07:13 Resp 18 09/14/22 07:13 BP 115/72 09/14/22 07:13 Pulse Ox 92 09/14/22 07:13 O2 Del Method Room Air 09/14/22 07:13 O2 Flow Rate 3 09/13/22 19:03 09/13/22 09/14/22 09/14/22 22:59 06:59 14:59 Intake Total 1000 / 1000 400 / 1400 94.667 / 94.667 Balance 1000 / 1000 400 / 1400 94.667 / 94.667 Weight last 48 hrs Weight 93.44 kg Physical Exam HENMT: COMMON NORMALS: normocephalic and atraumatic HEAD & SCALP: normocephalic and atraumatic Chest: CHEST: Yes Symmetrical chest wall rise Resp: COMMON NORMALS: clear to auscultation bilaterally AUSCULTATION: clear to auscultation bilaterally Cardio: COMMON NORMALS: regular rate, regular rhythm, S1 normal heart sound present, S2 normal heart sound present, No gallops present (Cardio), No murmurs present (Cardio), No rub (Cardio) and Peripheral pulses 2+ throughout RATE: regular rate RHYTHM: regular rhythm HEART SOUNDS: S1 normal heart sound present and S2 normal heart sound present PERIPHERAL PULSES: Peripheral pulses 2+ throughout GI: COMMON NORMALS: Normal to inspection, nondistended, normoactive bowel sounds present, Soft to palpation, non-tender, No hepatosplenomegaly present and no masses AUSCULTATION: Yes normoactive bowel sounds PALPATION: Yes Soft to palpation and Yes No hepatosplenomegaly present RECTAL EXAM: Yes deferred Extremity: COMMON NORMALS: no clubbing, cyanosis or edema and no pedal edema Data 09/14/22 09:10 09/13/22 19:15 Micro: Microbiology 09/14/22 02:15 Blood Culture - Preliminary Blood SPECIMEN COLLECTED 09/14/22 02:02 Blood Culture - Preliminary Blood SPECIMEN COLLECTED A&P Assessment and plan (1) Syncope: Possibly secondary to hypovolemia secondary to GI blood loss. 2 orthostatic vital sign 2D echo: Has shown normal LV systolic function with normal EF of 50 to 55%, grad e 1 diastolic dysfunction. Telemetry monitoring (2) Acute upper GI bleed: Patient presented with melanotic stool Admission hemoglobin 9.5 Positive FOBT Monitor H&H every 8 hours Transfuse to maintain hemoglobin greater than 7 Currently on Protonix drip Currently on clear liquid diet N.p.o. after midnight Surgery on board for possible EGD Continue IV hydration with normal saline (3) Mixed hyperlipidemia: (4) Developmental mental disorder: (5) Hypertension: Currently antihypertensives on hold Qualifiers: Hypertension type: essential hypertension Qualified Code(s): I10 - Essential (primary) hypertension (6) Anxiety: (7) Smoker: (8) Leukocytosis: Possibly reactive X-ray chest has shown: Ill-defined ground-glass opacity in the lateral right mid lung suspicious for pneumonitis or possibly an atypical pneumonia. Possible aspiration. Procalcitonin 0.07 Lactic acid 0.9 Follow blood culture. Currently is empirically on ceftriaxone azithromycin (9) Status post fall: Likely secondary to hypertension CT head without contrast no acute intracranial pathology Plan CODE STATUS full code DVT prophylaxis on SCD Attestations Medical Necessity Statement*: Needs to be in hospital for management of GI bleed. Coding Level of Care Code Acute Code for Chg Fwd Diagnoses Syncope R55 Acute upper GI bleed K92.2 Mixed hyperlipidemia E78.2 Developmental mental disorder F88 Hypertension I10 Hypertension type: essential hypertension Anxiety F41.9 Smoker F17.200 Leukocytosis D72.829 Status post fall Z91.81
[2022-09-14 17:29] LABS: Hematocrit 23.8 % (42.0-52.0); Hemoglobin 7.7 g/dL (11.7-16.6)
[2022-09-15] VITALS (16 sets, daily range): BP systolic 91–133; BP diastolic 42–81; PULSE 67–101; RESP 16–18; TEMP 36.1–37.7; O2SAT 91–100
[2022-09-15 01:02] LABS: Hematocrit 21.9 % (42.0-52.0)
[2022-09-15] MEDS: azithromycin 500 MG in sodium chloride 0.9% 250 ML 250 MG IV (02:52)
[2022-09-15] MEDS: pantoprazole 40 MG in sodium chloride 0.9% (plus) 100 ML 20 MG IV (04:20)
[2022-09-15] MEDS: cefTRIAXone 1,000 MG in sodium chloride 0.9% (plus) 50 ML 100 MG IV (05:02)
[2022-09-15] MEDS: sodium chloride 0.9% 1,000 ML 125 ML IV (05:03)
[2022-09-15 05:47] LABS: Basophils # 0.1 10^3/uL (0.0-0.1); Basophils % 0.5 %; Eosinophils # 0.2 10^3/uL (0.0-0.8); Eosinophils % 2.5 %; Hematocrit 23.7 % (42.0-52.0); Hemoglobin 7.4 g/dL (11.7-16.6); Lymphocytes # 1.2 10^3/uL (0.8-4.8); Lymphocytes % 12.5 %; Mean Corpuscular HGB Conc 31.2 g/dL (30.0-36.0); Mean Corpuscular Hemoglobin 31.5 pg (28.0-34.0); Mean Corpuscular Volume 100.9 fl (80-94); Mean Platelet Volume 11.3 fL (7.4-10.4); Monocytes # 0.5 10^3/uL (0.2-0.9); Monocytes % 5.8 %; Neutrophils % 78.2 %; Nucleated Red Blood Cells % 0 %; Platelet Count 156 10^3/cmm (130-400); Red Blood Count 2.35 10^6/uL (4.1-5.3); Red Cell Distribution Width 13.3 % (12.1-15.1); White Blood Count 9.2 10^3/uL (4.0-10.0)
[2022-09-15 06:11] LABS: Anion Gap 10.6 (5-19); Blood Urea Nitrogen 21 mg/dL (8-23); Calcium 7.7 mg/dL (8.5-10.5); Carbon Dioxide 21 mmol/L (22-29); Chloride 110 mmol/L (98-107); Glucose 87 mg/dL (65-115); Osmolality Calculated 288 mOsm/kg (285-295); Potassium 3.6 mmol/L (3.5-5.1); Sodium 138 mmol/L (136-145)
--- NOTE | 2022-09-15 07:26 | P.ANESASSM_ITS ---
Pre-Anesthetic Assessment Height/Weight: Height 1.8 m Weight 93.44 kg Temp Pulse Resp BP Pulse Ox O2 Del Method O2 Flow Rate 98.4 F 72 18 128/75 96 Room Air 97 09/15/22 07:16 09/15/22 07:16 09/15/22 07:16 09/15/22 07:16 09/15/22 07:16 09/15/22 07:16 09/14/22 16:00 Preop Diagnosis: Acute GI bleed Operation Date: 09/15/22 08:00 Proposed Procedures p EGD(Not Applicable) - Alfonzo Beebe DO Familial anesthetic complications: None Was Beta Octaviano taken within 24 hours: N/A Was Clonidine taken within 24 hours: N/A Social No alcohol and No tobacco Exam alert, clear to auscultation bilaterally and regular rate & rhythm Answers yes and no Airway Submandibular: within normal limits Cervical ROM: within normal limits Mallampati: Class III Dentition: false Comments: Comments: Large tongue and nose History/ROS No significant history except as noted and No significant complaints Pulmonary None reported CV/HEM Hypertension CONCLUSIONS ?LV systolic function is normal with EF of 50 to 55%. ?Grade 1 diastolic dysfunction ?Dilated left atrium ?Trace mitral regurgitation ?Trace tricuspid regurgitation ?Aortic valve is thickened.? Cannot rule out bicuspid valve. ?Trace pericardial effusion ?Aortic root is dilated.? Aorta is dilated. ?No comparison studies are available BPH Hepatic None reported GI Acute GI bleed Metabolic Hyperlipidemia [facility] [place] Osteoarthritis/DJD Neuropsych Anxiety and Syncope Developmental delay Anesthetic Plan ASA status: 3 Anesthesia: Anesthesia Evaluation, General and MAC Risk of > 500 ml blood loss (7ml/kg in children): No Other Pertinent Information Consent given by brother to treat patient via phone call. Medications/Allergies Home Medications Medication Instructions Recorded Confirmed Last Taken Type ergocalciferol (vitamin D2) 1,250 See Rx Instructions .Route 09/05/22 09/14/22 Unknown Rx mcg (50,000 unit) capsule .COMPLEX #4 caps amlodipine 2.5 mg tablet 2.5 mg PO DAILY 09/14/22 09/14/22 Unknown History atorvastatin 40 mg tablet 40 mg PO DAILY 09/14/22 09/14/22 Unknown History finasteride 5 mg tablet 5 mg PO DAILY 09/14/22 09/14/22 Unknown History lisinopril 20 mg tablet 20 mg PO DAILY 09/14/22 09/14/22 Unknown History sertraline 50 mg tablet 50 mg PO DAILY 09/14/22 09/14/22 Unknown History tamsulosin 0.4 mg capsule 0.4 mg PO DAILY 09/14/22 09/14/22 Unknown History Allergies Allergy/AdvReac Type Severity Reaction Status Date / Time No Known Allergies Allergy Verified 09/14/22 09:59 Current Medications Generic Name Dose Route Start Last Admin Trade Name Kamila TINOCON Reason Stop Dose Admin Pantoprazole Sodium 40 mg/ 100 mls @ 20 mls/hr 09/13/22 21:00 09/15/22 04:20 Sodium Chloride IV 8 mg/hr .Q5H KAREN 20 mls/hr Administration 8 MG/HR Sodium Chloride 1,000 mls @ 125 mls/hr 09/14/22 01:00 09/15/22 05:03 Sodium Chloride 0.9% IV 125 mls/hr .Q8H KAREN Administration Ceftriaxone Sodium 1,000 mg/ 50 mls @ 100 mls/hr 09/14/22 01:00 09/15/22 05:40 Sodium Chloride IV Infused Q24H KAREN Infusion Protocol Azithromycin 500 mg/ Sodium 250 mls @ 250 mls/hr 09/14/22 01:00 09/15/22 04:22 Chloride IV Infused Q24H KAREN Infusion Protocol Additional Medication Information Generic Name Dose Route Start Last Admin Trade Name Kamila TINOCON Reason Stop Dose Admin Pantoprazole Sodium 40 mg/ 100 mls @ 20 mls/hr 09/13/22 21:00 09/14/22 13:16 Sodium Chloride IV 8 mg/hr .Q5H KAREN 20 mls/hr Administration 8 MG/HR Sodium Chloride 1,000 mls @ 125 mls/hr 09/14/22 01:00 09/14/22 13:20 Sodium Chloride 0.9% IV 125 mls/hr .Q8H KAREN Administration Ceftriaxone Sodium 1,000 mg/ 50 mls @ 100 mls/hr 09/14/22 01:00 09/14/22 05:53 Sodium Chloride IV Infused Q24H KAREN Infusion Protocol Azithromycin 500 mg/ Sodium 250 mls @ 250 mls/hr 09/14/22 01:00 09/14/22 04:38 Chloride IV Infused Q24H KAREN Infusion Protocol [facility] Anesthesia Medical History Anxiety BPH loc w urin obs/LUTS Developmental mental disorder Elevated PSA Hypertension Mixed hyperlipidemia Surgical History History of amputation of finger of right hand History of surgery on arm Family History Brother Diabetes Hypertension Social History Smoking and tobacco status: current every day smoker (6 cigarettes/day) cigarettes Packs smoked per day: 0.5 Years cigarettes smoked: 40 Second hand smoke exposure: No Alcohol intake: never Substance/Drug Use: never Adopted: No Caregiver/support person: Yes (brother Tenzin Cordova) Lives independently: Yes Marital status: Single service: No Current occupational status: disabled Current gender identity: Male Data Anesthesia 09/15/22 04:44 09/15/22 04:44 Short CBC 09/13/22 09/13/22 09/14/22 Range/Units 19:15 22:13 02:02 WBC 13.7 H (4.0-10.0) 10^3/uL Hgb 9.5 L 9.4 L 8.4 L (11.7-16.6) g/dL Hct 28.9 L 29.6 L 26.4 L (42.0-52.0) % MCV 98.3 H (80-94) fl Plt Count 172 (130-400) 10^3/cmm Neut % (Auto) 86.4 % Neut # (Auto) 11.83 H (1.8-7.7) 10^3/uL 09/14/22 09/14/22 09/15/22 Range/Units 09:10 17:15 00:57 WBC (4.0-10.0) 10^3/uL Hgb 8.0 L 7.7 L 7.0 L (11.7-16.6) g/dL Hct 24.4 L 23.8 L 21.9 L (42.0-52.0) % MCV (80-94) fl Plt Count (130-400) 10^3/cmm Neut % (Auto) % Neut # (Auto) (1.8-7.7) 10^3/uL 09/15/22 Range/Units 04:44 WBC 9.2 (4.0-10.0) 10^3/uL Hgb 7.4 L (11.7-16.6) g/dL Hct 23.7 L (42.0-52.0) % MCV 100.9 H (80-94) fl Plt Count 156 (130-400) 10^3/cmm Neut % (Auto) 78.2 % Neut # (Auto) 7.20 (1.8-7.7) 10^3/uL BMP 09/13/22 09/15/22 19:15 04:44 Sodium 138 138 Potassium 4.2 3.6 Chloride 107 110 H Carbon Dioxide 22 21 L BUN 40 H 21 Creatinine 0.7 0.4 L Glucose 120 H 87 Calcium 8.1 L 7.7 L Cardiac Enzymes 09/13/22 09/13/22 09/13/22 Range/Units 19:15 19:15 21:15 Creatine Kinase 31 L (39-308) U/L Troponin T Baseline 8 (0-15) ng/L Troponin T 120 Minute 8.98 (0-15) ng/L Delta Troponin T 0.98 (0-10) ABS# Troponin T Hi Sens 6Hr (0-15) ng/L Troponin T Hi Sens 6Hr Delta (0-12) ng/L 09/14/22 Range/Units 02:02 Creatine Kinase (39-308) U/L Troponin T Baseline (0-15) ng/L Troponin T 120 Minute (0-15) ng/L Delta Troponin T (0-10) ABS# Troponin T Hi Sens 6Hr 10.49 (0-15) ng/L Troponin T Hi Sens 6Hr Delta 2.49 (0-12) ng/L Liver Function 09/13/22 Range/Units 19:15 Total Bilirubin 0.2 (0.15-1.2) mg/dL AST 12 (0-40) U/L ALT 7 (0-41) U/L Alkaline Phosphatase 38 L (40-130) U/L Albumin 3.5 (3.5-5.2) g/dL Urine 09/13/22 Range/Units Unknown Urine Color Yellow (Yellow) Urine Appearance Clear (CLEAR) Urine pH 6 (5-7) Ur Specific [place] 1.015 (1.005-1.030) Urine Protein Neg (Negative) Urine Glucose (UA) Norm (Normal) Urine Ketones Negative (Negative) Urine Nitrate Negative (Negative) Urine Bilirubin Neg (Negative) Ur Leukocyte Esterase Negative (Negative) Blood Bank 09/13/22 21:15 Blood Type O Positive Rho(D) Type Positive Antibody Screen Negative Coags 09/13/22 19:15 PT 14.80 INR 1.13 Microbiology 09/14/22 02:15 Blood Culture - Preliminary Blood NEGATIVE TO DATE 09/14/22 02:02 Blood Culture - Preliminary Blood NEGATIVE TO DATE Cardiac Studies: Echocardiogram 09/14/22
[2022-09-15] MEDS: sodium chloride 0.9% 1,000 ML 30 ML IV (07:53)
--- NOTE | 2022-09-15 08:06 | PM.CONSULT ---
Providers/Reason For Consult Consulting Physician/Specialty*: Dr. Alfonzo Beebe, DO/General surgery Reason for Consult*: Melena/anemia Attending Physician: Isacc Schulz MD Primary Care Provider: MAURICE Ackerman History of Present Illness History of Present Illness Malik Cordova is a 72 year old male with intellectual disability who presents to the hospital after a fall. He was found to have melanotic stools and be anemic. Medicine requested EGD. HPI and review of systems are limited secondary to the intellectual disability. Review of Systems General: Reports: ROS unobtainable due to medical condition Medications/Allergies Home Medications Medication Instructions Recorded Confirmed Last Taken Type ergocalciferol (vitamin D2) 1,250 See Rx Instructions .Route 09/05/22 09/14/22 Unknown Rx mcg (50,000 unit) capsule .COMPLEX #4 caps amlodipine 2.5 mg tablet 2.5 mg PO DAILY 09/14/22 09/14/22 Unknown History atorvastatin 40 mg tablet 40 mg PO DAILY 09/14/22 09/14/22 Unknown History finasteride 5 mg tablet 5 mg PO DAILY 09/14/22 09/14/22 Unknown History lisinopril 20 mg tablet 20 mg PO DAILY 09/14/22 09/14/22 Unknown History sertraline 50 mg tablet 50 mg PO DAILY 09/14/22 09/14/22 Unknown History tamsulosin 0.4 mg capsule 0.4 mg PO DAILY 09/14/22 09/14/22 Unknown History Allergies Allergy/AdvReac Type Severity Reaction Status Date / Time No Known Allergies Allergy Verified 09/14/22 09:59 Current Medications Generic Name Dose Route Start Last Admin Trade Name Freq PRN Reason Stop Dose Admin Pantoprazole Sodium 40 mg/ 100 mls @ 20 mls/hr 09/13/22 21:00 09/15/22 04:20 Sodium Chloride IV 8 mg/hr .Q5H KAREN 20 mls/hr Administration 8 MG/HR Sodium Chloride 1,000 mls @ 125 mls/hr 09/14/22 01:00 09/15/22 05:03 Sodium Chloride 0.9% IV 125 mls/hr .Q8H KAREN Administration Ceftriaxone Sodium 1,000 mg/ 50 mls @ 100 mls/hr 09/14/22 01:00 09/15/22 05:40 Sodium Chloride IV Infused Q24H KAREN Infusion Protocol Azithromycin 500 mg/ Sodium 250 mls @ 250 mls/hr 09/14/22 01:00 09/15/22 04:22 Chloride IV Infused Q24H KAREN Infusion Protocol Sodium Chloride 1,000 mls @ 30 mls/hr 09/15/22 07:30 09/15/22 07:53 Sodium Chloride 0.9% IV 09/16/22 07:29 30 mls/hr .Q24H KAREN Administration PFSH Acute PFSH: Medical History Anxiety BPH loc w urin obs/LUTS Developmental mental disorder Elevated PSA Hypertension Mixed hyperlipidemia Surgical History History of amputation of finger of right hand History of surgery on arm Family History Brother Diabetes Hypertension Social History Smoking and tobacco status: current every day smoker (6 cigarettes/day) cigarettes Packs smoked per day: 0.5 Years cigarettes smoked: 40 Second hand smoke exposure: No Alcohol intake: never Substance/Drug Use: never Adopted: No Caregiver/support person: Yes (brother Tenzin Cordova) Lives independently: Yes Marital status: Single service: No Current occupational status: disabled Current gender identity: Male Vitals/I&O/Wt Last Vital Signs Temp 97 F L 09/15/22 07:47 Pulse 85 09/15/22 07:47 Resp 18 09/15/22 07:47 BP 113/81 09/15/22 07:47 Pulse Ox 97 09/15/22 07:47 O2 Del Method Room Air 09/15/22 07:47 O2 Flow Rate 97 09/14/22 16:00 09/14/22 09/15/22 09/15/22 22:59 06:59 14:59 Intake Total 1429.333 / 2624.000 1300 / 3924.000 Balance 1429.333 / 2624.000 1300 / 3924.000 Weight last 48 hrs Weight 206 lb Physical Exam Narrative: General : Patient is well developed , no acute distress Head : Normal cephalic, a-traumatic. Ears : Pinnae and external canal are normal. Hearing is normal. Eyes : PERRLA, Sclera and injection are normal. No conjunctival discharge. Nose : Mucous membranes are without erythema. Throat : buccal mucosa is normal, gums are without significant recession or hypertrophy. Lungs : Equal chest rise bilaterally, no use of accessory muscles, trachea is midline. Cor : Rate and rhythm are normal. Abdomen : Soft, ND, NT, no g/r/m Extremities : No edema, no cyanosis or clubbing, dorsalis pedis pulses are present bilaterally, non-tender to palpation of calves. Upper extremities are normal bilaterally. Back : non-tender to palpation, no CVA tenderness. Neuro : CN II - XII intact, Upper and lower extremities have equal and full strength Data 09/15/22 04:44 09/15/22 04:44 Micro: Microbiology 09/14/22 02:15 Blood Culture - Preliminary Blood NEGATIVE TO DATE 09/14/22 02:02 Blood Culture - Preliminary Blood NEGATIVE TO DATE A&P Assessment and plan (1) Anemia: (2) Melena: Plan EGD The risks and benefits of the procedure, including bleeding, infection, intestinal perforation requiring surgery, missed lesion were explained to the patient. The patient is understanding of the risks and wishes to proceed. Coding Level of Care Code 69777 Diagnoses Anemia D64.9 Melena K92.1
[2022-09-15 09:55] LABS: Hematocrit 22.3 % (42.0-52.0); Hemoglobin 7.1 g/dL (11.7-16.6)
--- NOTE | 2022-09-15 11:58 | ANE.PACU2 ---
Inpatient post-anesthesia follow up: Airway intact: Yes Vital signs: Temperature 97 F Pulse Rate [Orthos tatic 89 Standing Left] Pulse Rate [Orthos tatic 87 Sitting Left] Pulse Rate [Orthos tatic Lying 72 Left] Pulse Rate 81 Respiratory Rate 16 Blood Pressure [Or thostatic 128/78 Standing Left Arm] Blood Pressure [Or thostatic 133/80 Sitting Left Arm] Blood Pressure [Or thostatic 125/75 Lying Left Arm] Blood Pressure 91/51 Pulse Oximetry 92 Oxygen Delivery Me thod [ Room Air Current Rate & Del janell] Oxygen Delivery Me thod Room Air Oxygen Flow Rate 6 Fraction of Inspir ed Oxygen Hydration adequate: Yes Nausea and vomiting: Yes Pain level: 1 Mental status: Baseline
--- NOTE | 2022-09-15 17:22 | PM.PN ---
Subjective Subjective: Patient was seen and examined this morning, H&H dropped to 7.1 and 22 today, underwent EGD which was unremarkable. Protonix drip has been discontinued. IV fluid has been discontinued as currently he is maintaining a decent MAP Medications: Medication Review Details: Generic Name Dose Route Start Last Admin Trade Name Kamila PRN Reason Stop Dose Admin Ceftriaxone Sodium 1,000 mg/ 50 mls @ 100 mls/ hr 09/14/22 01:00 09/15/22 05:40 Sodium Chloride IV Infused Q24H KAREN Infusion Protocol Azithromycin 500 m g/ Sodium 250 mls @ 250 mls /hr 09/14/22 01:00 09/15/22 04:22 Chloride IV Infused Q24H KAREN Infusion Protocol Sodium Chloride 1,000 mls @ 30 ml s/hr 09/15/22 07:30 09/15/22 08:29 Sodium Chloride 0.9% IV 09/16/22 07:29 Infused .Q24H KAREN Infusion Vitals/I&O/Wt Last Vital Signs Temp 98.6 F 09/15/22 16:00 Pulse 82 09/15/22 16:00 Resp 18 09/15/22 16:00 BP 127/73 09/15/22 16:00 Pulse Ox 97 09/15/22 16:00 O2 Del Method Room Air 09/15/22 16:00 O2 Flow Rate 6 09/15/22 08:27 09/15/22 09/15/22 09/15/22 06:59 14:59 22:59 Intake Total 1300 / 3924.000 1979 Balance 1300 / 3924.000 1979 Weight last 48 hrs Weight 93.44 kg Physical Exam HENMT: COMMON NORMALS: normocephalic and atraumatic HEAD & SCALP: normocephalic and atraumatic Eye: GENERAL EYE: appearance normal, both eyes and all related structures Resp: COMMON NORMALS: clear to auscultation bilaterally AUSCULTATION: clear to auscultation bilaterally Cardio: COMMON NORMALS: regular rate, regular rhythm, S1 normal heart sound present, S2 normal heart sound present, No gallops present (Cardio), No murmurs present (Cardio), No rub (Cardio) and Peripheral pulses 2+ throughout RATE: regular rate RHYTHM: regular rhythm HEART SOUNDS: S1 normal heart sound present and S2 normal heart sound present PERIPHERAL PULSES: Peripheral pulses 2+ throughout GI: COMMON NORMALS: Normal to inspection, nondistended, normoactive bowel sounds present, Soft to palpation, non-tender, No hepatosplenomegaly present and no masses AUSCULTATION: Yes normoactive bowel sounds PALPATION: Yes Soft to palpation and Yes No hepatosplenomegaly present RECTAL EXAM: Yes deferred Extremity: COMMON NORMALS: no clubbing, cyanosis or edema and no pedal edema Data 09/15/22 09:45 09/15/22 04:44 Micro: Microbiology 09/14/22 02:15 Blood Culture - Preliminary Blood NEGATIVE TO DATE 09/14/22 02:02 Blood Culture - Preliminary Blood NEGATIVE TO DATE A&P Assessment and plan (1) Syncope: Possibly secondary to hypovolemia secondary to GI blood loss. Initial orthostatic vital signs were positive,repeat orthostatic vital sign post aggressive IV hydration is negative. 2D echo: Has shown normal LV systolic function with normal EF of 50 to 55%, grade 1 diastolic dysfunction. Telemetry monitoring (2) Acute upper GI bleed: Patient presented with melanotic stool Admission hemoglobin 9.5 Positive FOBT Monitor H&H every 8 hours Transfuse to maintain hemoglobin greater than 7 Was on Protonix drip Was on clear liquid diet, has been advanced to regular diet N.p.o. after midnight S/P: EGD: Unremarkable Was on IV hydration with normal saline (3) Mixed hyperlipidemia: (4) Developmental mental disorder: (5) Hypertension: Currently antihypertensives on hold Qualifiers: Hypertension type: essential hypertension Qualified Code(s): I10 - Essential (primary) hypertension (6) Anxiety: (7) Smoker: (8) Leukocytosis: Possibly reactive X-ray chest has shown: Ill-defined ground-glass opacity in the lateral right mid lung suspicious for pneumonitis or possibly an atypical pneumonia. Possible aspiration. Procalcitonin 0.07 Lactic acid 0.9 Blood culture:NTD empirically on ceftriaxone azithromycin (9) Status post fall: Likely secondary to hypotension CT head without contrast no acute intracranial pathology Initial orthostatic vital signs were positive,repeat orthostatic vital sign post aggressive IV hydration is negative. (10) Anemia: Follow anemia panel Transfuse to maintain hemoglobin greater than 7 Plan CODE STATUS full code DVT prophylaxis on SCD Attestations Medical Necessity Statement*: He is still in hospital for monitoring of H&H. Coding Level of Care Code Acute Code for Chg Fwd Diagnoses Syncope R55 Acute upper GI bleed K92.2 Mixed hyperlipidemia E78.2 Developmental mental disorder F88 Hypertension I10 Hypertension type: essential hypertension Anxiety F41.9 Smoker F17.200 Leukocytosis D72.829 Status post fall Z91.81 Anemia D64.9
[2022-09-15 18:07] LABS: Hematocrit 21.2 % (42.0-52.0); Hemoglobin 6.8 g/dL (11.7-16.6)
[2022-09-15] MEDS: iron sucrose 200 MG in sodium chloride 0.9% (100 ml) 100 ML 220 MG IV (18:27)
[2022-09-15] MEDS: pantoprazole 40 mg SDV IVP (18:36)
[2022-09-15] MEDS: sodium chloride 0.9% 100 mL Bag 50 ML IV (22:44)
[2022-09-16] VITALS (8 sets, daily range): BP systolic 92–124; BP diastolic 61–80; PULSE 66–89; RESP 16; TEMP 36.5–36.8; O2SAT 91–97
[2022-09-16] MEDS: azithromycin 500 MG in sodium chloride 0.9% 250 ML 250 MG IV (03:12)
[2022-09-16 03:51] LABS: Hemoglobin 7.1 g/dL (11.7-16.6)
[2022-09-16 04:25] LABS: Ferritin 246 ng/mL (30-400)
[2022-09-16 04:31] LABS: Folate Level 4.8 ng/mL (4.5-32.2)
[2022-09-16 04:37] LABS: Iron 196 ug/dL (59-158); Transferrin 157 mg/dL (200-360)
[2022-09-16] MEDS: cefTRIAXone 1,000 MG in sodium chloride 0.9% (plus) 50 ML 100 MG IV (04:41)
[2022-09-16 04:53] LABS: Vitamin B12 410 pg/mL (232-1245)
[2022-09-16 08:46] LABS: Hematocrit 24.6 % (42.0-52.0); Hemoglobin 7.7 g/dL (11.7-16.6)
[2022-09-16] MEDS: pantoprazole 40 mg SDV IVP (09:34)
--- NOTE | 2022-09-16 10:07 | PM.DCS ---
Discharge Providers Date of Admission: 09/13/22 20:55 Date of Discharge: September 16, 2022 Attending Provider at Admission: Alexandra Ferreira MD Attending Provider at Discharge: Isacc Schulz MD Primary Care Provider: MAURICE Ackerman Diagnoses at Discharge Discharge Diagnosis (1) Syncope: Status: Acute (2) Acute upper GI bleed: Status: Acute (3) Mixed hyperlipidemia: Status: Acute (4) Developmental mental disorder: Status: Acute (5) Hypertension: Status: Acute Qualifiers: Hypertension type: essential hypertension Qualified Code(s): I10 - Essential (primary) hypertension (6) Anxiety: Status: Acute (7) Smoker: Status: Acute (8) Leukocytosis: Status: Acute (9) Status post fall: Status: Acute (10) Anemia: Status: Acute Reason for Visit Reason for Visit: syncope Hospital Course Hospital Course 72 year old male With past medical history of anxiety, BPH, developmental mental disorder/intellectual disability, hypertension, hyperlipidemia presented to the hospital after he experienced fall at home, when he arrived in the ER he was found to be hypotensive, H&H was low as compared to his baseline, FOBT was positive, orthostatic vital signs initially were positive, he was admitted for the management of, syncope, likely secondary to hypotension, with positive orthostatic hypotension, secondary to hypovolemia secondary to possible GI bleed, patient was also having melanotic stool, he was initially kept, n.p.o., on Protonix drip, IV fluids, orthostatic vital signs were monitored, underwent EGD: Which was unremarkable, possibility of AVM exist, or distal GI bleed exist, for which he may need, capsule endoscopy, in future if, he continues to have melanotic stool with drop in H&H. During the hospital stay he required 1 unit PRBC as his H&H has dropped to 6.8 and 22, posttransfusion H&H was stable. Orthostatic vital signs were negative prior to discharge, he was adequately volume repleted with IV fluids as well as blood transfusion, at the time of discharge since his blood pressure was slightly soft, amlodipine and lisinopril has been kept on hold, family has been asked to maintain a blood pressure log And discussed with the PCP in a week time, and at that time decision regarding initiating antihypertensive can be taken. Patient was also discharged on Protonix p.o. daily.2D echo: Done during hospital stay showed normal LV systolic function with normal EF of 50 to 55%, grade 1 diastolic dysfunction. We will stay patient was empirically kept on antibiotics as he had leukocytosis, which was possibly reactive, though chest x-ray showed Ill-defined ground-glass opacity in the lateral right mid lung suspicious for pneumonitis or possibly an atypical pneumonia. Possible aspiration. Procalcitonin 0.07 ,Lactic acid 0.9, Blood culture:NTD. Low clinical suspicion for pneumonia/pneumonitis.CT head without contrast no acute intracranial pathology. Anemia panel was reviewed. Overall he responded well to above medical management, and was discharged in stable condition to home. He has been asked to do a repeat CBC in 1 week. Physical Exam HENMT: COMMON NORMALS: normocephalic and atraumatic HEAD & SCALP: normocephalic and atraumatic Resp: COMMON NORMALS: normal respiratory effort, No retractions, No use of accessory muscles and clear to auscultation bilaterally EFFORT & INSPECTION: Yes symmetric chest movement AUSCULTATION: clear to auscultation bilaterally Cardio: COMMON NORMALS: regular rate, regular rhythm, S1 normal heart sound present, S2 normal heart sound present, No gallops present (Cardio), No murmurs present (Cardio), No rub (Cardio) and Peripheral pulses 2+ throughout RATE: regular rate RHYTHM: regular rhythm HEART SOUNDS: S1 normal heart sound present and S2 normal heart sound present PERIPHERAL PULSES: Peripheral pulses 2+ throughout GI: COMMON NORMALS: Normal to inspection, nondistended, normoactive bowel sounds present, Soft to palpation, non-tender, No hepatosplenomegaly present and no masses AUSCULTATION: Yes normoactive bowel sounds PALPATION: Yes Soft to palpation and Yes No hepatosplenomegaly present RECTAL EXAM: Yes deferred Extremity: COMMON NORMALS: no clubbing, cyanosis or edema and no pedal edema Discharge Data Studies Completed and Pending Completed Studies During Hospitalization Category Date Time Status CT head wo con* [id number] Stat Cat Scan 09/13/22 19:04 Completed XR chest 1V portable [id number] Stat Exams 09/13/22 19:04 Completed US echo complete [CV. echo complete* [id number]] Routine Ultrasound 09/14/22 01:04 Completed Pending at discharge Category Date Time Status Blood Culture Routine Lab 09/14/22 02:15 Results Sputum Culture and Gram Stain Stat Lab 09/14/22 01:04 Uncollected Radiology Impressions Chest X-Ray 09/13/22 19:04 IMPRESSION: 1. Ill-defined ground-glass opacity in the lateral right mid lung suspicious for pneumonitis or possibly an atypical pneumonia. Recommend clinical correlation. Recommend followup chest imaging to insure resolution of these findings. 2. Incidental/nonacute findings are listed in the report. Head CT 09/13/22 19:04 IMPRESSION: 1. No acute abnormality of the brain. 2. Stable mild atrophy of the brain parenchyma. 3. Stable mild chronic white matter microangiopathic change. 4. Incidental/nonacute findings are listed in the report. Laboratory Results WBC 9.2 10^3/uL (4.0-10.0) 09/15/22 04:44 RBC 2.35 10^6/uL (4.1-5.3) L 09/15/22 04:44 Hgb 7.7 g/dL (11.7-16.6) L 09/16/22 08:42 Hct 24.6 % (42.0-52.0) L 09/16/22 08:42 MCV 100.9 fl (80-94) H 09/15/22 04:44 MCH 31.5 pg (28.0-34.0) 09/15/22 04:44 MCHC 31.2 g/dL (30.0-36.0) 09/15/22 04:44 RDW 13.3 % (12.1-15.1) 09/15/22 04:44 Plt Count 156 10^3/cmm (130-400) 09/15/22 04:44 MPV 11.3 fL (7.4-10.4) H 09/15/22 04:44 Neut % (Auto) 78.2 % 09/15/22 04:44 Lymph % (Auto) 12.5 % 09/15/22 04:44 [place] % (Auto) 5.8 % 09/15/22 04:44 Eos % (Auto) 2.5 % 09/15/22 04:44 Baso % (Auto) 0.5 % 09/15/22 04:44 Neut # (Auto) 7.20 10^3/uL (1.8-7.7) 09/15/22 04:44 Lymph # (Auto) 1.2 10^3/uL (0.8-4.8) 09/15/22 04:44 [place] # (Auto) 0.5 10^3/uL (0.2-0.9) 09/15/22 04:44 Eos # (Auto) 0.2 10^3/uL (0.0-0.8) 09/15/22 04:44 Baso # (Auto) 0.1 10^3/uL (0.0-0.1) 09/15/22 04:44 Nucleated RBC % (auto) 0 % 09/15/22 04:44 Nucleated RBCs # 0.0 /100WBC 09/15/22 04:44 PT 14.80 SECONDS (12.1-14.9) 09/13/22 19:15 INR 1.13 (0.8-1.2) 09/13/22 19:15 Sodium 138 mmol/L (136-145) 09/15/22 04:44 Potassium 3.6 mmol/L (3.5-5.1) 09/15/22 04:44 Chloride 110 mmol/L (98-107) H 09/15/22 04:44 Carbon Dioxide 21 mmol/L (22-29) L 09/15/22 04:44 Anion Gap 10.6 (5-19) 09/15/22 04:44 BUN 21 mg/dL (8-23) 09/15/22 04:44 Creatinine 0.4 mg/dL (0.7-1.2) L 09/15/22 04:44 GFR Calculation Not Reportable 09/15/22 04:44 Glucose 87 mg/dL (65-115) 09/15/22 04:44 Calculated Osmolality 288 mOsm/kg (285-295) 09/15/22 04:44 Lactic Acid 0.9 mmol/L (0.5-2.2) 09/14/22 02:02 Calcium 7.7 mg/dL (8.5-10.5) L 09/15/22 04:44 Magnesium 2.0 mg/dL (1.7-2.3) 09/15/22 04:44 Iron 196 ug/dL (59-158) H 09/16/22 03:25 TIBC 187.51894 mcg/dl 09/16/22 03:25 % Saturation 104.0 % (20-50) H 09/16/22 03:25 Unsat Iron Binding > -9 ug/dL (112-347) L 09/16/22 03:25 Transferrin 157 mg/dL (200-360) L 09/16/22 03:25 Ferritin 246 ng/mL (30-400) 09/16/22 03:25 Total Bilirubin 0.2 mg/dL (0.15-1.2) 09/13/22 19:15 AST 12 U/L (0-40) 09/13/22 19:15 ALT 7 U/L (0-41) 09/13/22 19:15 Alkaline Phosphatase 38 U/L (40-130) L 09/13/22 19:15 Creatine Kinase 31 U/L (39-308) L 09/13/22 19:15 Troponin T Baseline 8 ng/L (0-15) 09/13/22 19:15 Troponin T 120 Minute 8.98 ng/L (0-15) 09/13/22 21:15 Delta Troponin T 0.98 ABS# (0-10) 09/13/22 21:15 Troponin T Hi Sens 6Hr 10.49 ng/L (0-15) 09/14/22 02:02 Troponin T Hi Sens 6Hr Delta 2.49 ng/L (0-12) 09/14/22 02:02 Total Protein 5.4 g/dL (6.6-8.7) L 09/13/22 19:15 Albumin 3.5 g/dL (3.5-5.2) 09/13/22 19:15 Globulin 1.9 g/dL (1.3-4.6) 09/13/22 19:15 Vitamin B12 410 pg/mL (232-1245) 09/16/22 03:25 Folate 4.8 ng/mL (4.5-32.2) 09/16/22 03:25 Procalcitonin 0.07 ng/mL (0-0.5) 09/14/22 02:02 TSH 2.64 uIU/mL (0.27-4.20) 09/14/22 02:02 Urine Color Yellow (Yellow) 09/13/22 Unknown Urine Appearance Clear (CLEAR) 09/13/22 Unknown Urine pH 6 (5-7) 09/13/22 Unknown Ur Specific [place] 1.015 (1.005-1.030) 09/13/22 Unknown Urine Protein Neg (Negative) 09/13/22 Unknown Urine Glucose (UA) Norm (Normal) 09/13/22 Unknown Urine Ketones Negative (Negative) 09/13/22 Unknown Urine Blood Neg (Negative) 09/13/22 Unknown Urine Nitrate Negative (Negative) 09/13/22 Unknown Urine Bilirubin Neg (Negative) 09/13/22 Unknown Urine Urobilinogen Norm mg/dL (Negative) 09/13/22 Unknown Ur Leukocyte Esterase Negative (Negative) 09/13/22 Unknown Blood Type O Positive 09/13/22 21:15 Rho(D) Type Positive 09/13/22 21:15 Antibody Screen Negative 09/13/22 21:15 Crossmatch See Detail 09/13/22 21:15 Vitals Last Vital Signs Temp 97.7 F 09/16/22 08:00 Pulse 78 09/16/22 09:47 Resp 16 09/16/22 08:00 BP 92/62 09/16/22 08:00 Pulse Ox 93 09/16/22 09:47 O2 Del Method Room Air 09/16/22 09:47 O2 Flow Rate 6 09/15/22 08:27 Discharge Plan Discharge Patient Disposition: Home Condition: Stable Prescriptions: New Protonix 40 mg tablet,delayed release (DR/EC) 40 mg PO DAILY Qty: 30 3RF Continued ergocalciferol (vitamin D2) 1,250 mcg (50,000 unit) capsule See Rx Instructions .ROUTE .COMPLEX Qty: 4 0RF Dose Instruction: TAKE ONE CAPSULE BY MOUTH WEEKLY Rx Instructions: TAKE ONE CAPSULE BY MOUTH WEEKLY atorvastatin 40 mg tablet 40 mg PO DAILY tamsulosin 0.4 mg capsule 0.4 mg PO DAILY sertraline 50 mg tablet 50 mg PO DAILY finasteride 5 mg tablet 5 mg PO DAILY Held lisinopril 20 mg tablet 20 mg PO DAILY Hold Instructions: Resume on 09/23/22. Monitor the B/ AT HOME KEEP A LOG OF IT CALL THE PCP OFFICE BEFORE RESUMING amlodipine 2.5 mg tablet 2.5 mg PO DAILY Hold Instructions: Resume on 09/23/22. Monitor the B/ AT HOME KEEP A LOG OF IT CALL THE PCP OFFICE BEFORE RESUMING Discharge Orders: Discharge Order (Routine); Ordered 09/16/22 Ordered By: Isacc Schulz Other Ambulatory Orders: Complete Blood Count w/Auto (Routine) Timeframe: 1 Week Location: Determined by Patient Ordered By: Isacc Schulz Referrals: Penny Barahona FNP [Primary Care Provider] - 1 week (Please call your PCP on Saturday to set up a follow-up appointment. ) Patient Instructions: Anemia, Pantoprazole (By mouth), Moderate Sedation (DC), GI Discharge Instructions, Opioid Safety Discharge Attestations Time Spent in Discharge Care*: less than 30 min Quality Metrics Clinical Quality Measures [ No reported AMI, CVA or VTE this stay] Coding Level of Care Code Acute Code for Chg Fwd Diagnoses Syncope R55 Acute upper GI bleed K92.2 Mixed hyperlipidemia E78.2 Developmental mental disorder F88 Hypertension I10 Hypertension type: essential hypertension Anxiety F41.9 Smoker F17.200 Leukocytosis D72.829 Status post fall Z91.81 Anemia D64.9
[2022-09-17 06:11] LABS: Total Iron Binding Capacity 212.99999 mcg/dl; Unsaturated Iron Binding < 17 ug/dL (112-347)
== END 2022-09-16 12:00 | disposition home or self-care (01) | DRG 379 ==
LOC: ER 21:24 → MEDSURG 22:40
PROVIDERS: Surgery; Admitting Provider Internal Medicine; Emergency Provider Emergency Medicine; PCP Nurse Practitioner Family; Visit Provider Internal Medicine
PROC: 0DJ08ZZ Inspection of Upper Intestinal Tract, Via Natural or Artificial Opening Endoscopic (ICD-10-PCS; CPT 43235; principal; 2022-09-15 08:00)
DX: K92.1 Melena (principal); W19.XXXA Unspecified fall, initial encounter; F41.9 Anxiety disorder, unspecified; N40.1 Benign prostatic hyperplasia with lower urinary tract symptoms; F79 Unspecified intellectual disabilities; I10 Essential (primary) hypertension; E78.2 Mixed hyperlipidemia; I95.1 Orthostatic hypotension; E86.1 Hypovolemia; D63.1 Anemia in chronic kidney disease; F17.210 Nicotine dependence, cigarettes, uncomplicated
CPT/HCPCS: 36415; 36430; 70450; 71045; 80048; 80053; 81003; 82550; 82607; 82728; 82746; 83540; 83550; 83605; 83735; 84145; 84443; 84466; 84484; 85014; 85018; 85025; 85610; 86850; 86900; 86920; 87040; 93005; 93306; 96365; 96366; 96375; 99285; C9113; J0456; J0696; J1756; J2370; J2704; J7030; J7050; P9016

== ENCOUNTER → 2022-09-18 11:30 | Outpatient (BNVA) | payer MEDICAID, SELFPAY | PROVIDERS: PCP Nurse Practitioner Family; Visit Provider Nurse Practitioner Family | DX: K92.2 Gastrointestinal hemorrhage, unspecified (principal); D64.9 Anemia, unspecified; I95.9 Hypotension, unspecified | CPT/HCPCS: 85025 ==

== ENCOUNTER 2022-09-19 10:15 | Inpatient (IN) | payer MEDICAID, SELFPAY ==
[2022-09-19] VITALS (14 sets, daily range): BP systolic 97–120; BP diastolic 62–84; PULSE 64–79; RESP 15–20; TEMP 36.6–37.2; O2SAT 94–100; BMI 29.9
[2022-09-19 11:18] LABS: Basophils % 0.2 %; Eosinophils # 0.1 10^3/uL (0.0-0.8); Hematocrit 23.6 % (42.0-52.0); Hemoglobin 7.5 g/dL (11.7-16.6); Lymphocytes # 0.7 10^3/uL (0.8-4.8); Lymphocytes % 8.3 %; Mean Corpuscular HGB Conc 31.8 g/dL (30.0-36.0); Mean Corpuscular Hemoglobin 31.8 pg (28.0-34.0); Mean Platelet Volume 9.9 fL (7.4-10.4); Monocytes # 0.5 10^3/uL (0.2-0.9); Monocytes % 5.9 %; Neutrophils % 83.6 %; Nucleated Red Blood Cells % 0.2 %; Platelet Count 222 10^3/cmm (130-400); Red Blood Count 2.36 10^6/uL (4.1-5.3); White Blood Count 8.6 10^3/uL (4.0-10.0)
--- NOTE | 2022-09-19 11:30 | W.ED.GIBLEED ---
HPI - GI Bleed General: Chief complaint: GI Bleed Stated complaint: Passing blood in stool, low blood pressure Time Seen by Provider: 09/19/22 11:27 Source: patient Mode of arrival: ambulatory History of Present Illness: 72-year-old male with developmental delay lives at home with caregiver. Caregiver had noticed blood in his stool he recently been hospitalized for this to get an EGD his primary caregiver is seen yesterday and scheduled a colonoscopy. complaint: gross hematochezia Onset (ago): day(s) Severity: mild Relieving factors: none Exacerbating factors: none Context: history of GI bleed Associated symptoms: Denies abdominal pain, chills, easy bruising, epistaxis, fever(s), malaise, nausea, other bleeding, poor appetite, rash, syncope, vomiting or weakness Treatments Prior to Arrival: none Review of Systems Const: Reports: fatigue; Denies: fever(s), chills or malaise ENMT: Denies: epistaxis Card: Denies: chest pain, palpitations or syncope Resp: Denies: dyspnea, productive cough or non-productive cough GI: Reports: hematochezia and melena; Denies: abdominal pain, nausea or vomiting : Denies: flank pain, dysuria, urinary frequency or urinary urgency Musc: Reports: back pain Skin/Breast: Denies: rash Nithin/Lymph: Denies: easy bruising PFSH ED PFSH: Medical History Acute upper GI bleed Anemia Anxiety BPH loc w urin obs/LUTS Developmental mental disorder Elevated PSA Hypertension Leukocytosis Melena Mixed hyperlipidemia Smoker Status post fall Syncope Surgical History History of amputation of finger of right hand History of surgery on arm Family History Brother Diabetes Hypertension Social History Smoking and tobacco status: current every day smoker (6 cigarettes/day) cigarettes Packs smoked per day: 0.5 Years cigarettes smoked: 40 Second hand smoke exposure: No Alcohol intake: never Substance/Drug Use: never Adopted: No Caregiver/support person: Yes (brother Tenzin Cordova) Lives independently: Yes Marital status: Single service: No Current occupational status: disabled Current gender identity: Male Physical Exam Const: GENERAL APPEARANCE: cooperative and comfortable ORIENTATION/CONSCIOUSNESS: Yes awake HENMT: COMMON NORMALS: normocephalic, atraumatic and hearing grossly normal bilaterally HEAD & SCALP: normocephalic and atraumatic Resp: COMMON NORMALS: normal respiratory effort, No retractions, No use of accessory muscles and clear to auscultation bilaterally AUSCULTATION: clear to auscultation bilaterally Cardio: COMMON NORMALS: regular rate, regular rhythm and No murmurs present (Cardio) RATE: regular rate RHYTHM: regular rhythm GI: COMMON NORMALS: Soft to palpation and No hepatosplenomegaly present AUSCULTATION: Yes normoactive bowel sounds PALPATION: Yes Soft to palpation, No Tenderness to palpation present (GI), No Guarding due to palpation present (GI) and Yes No hepatosplenomegaly present Extremity: COMMON NORMALS: normal to inspection, capillary refill normal, no clubbing, cyanosis or edema, no calf tenderness and no pedal edema Skin: COMMON NORMALS: no rashes or lesions noted GENERAL SKIN EXAM: no rashes or lesions noted Course Vital Signs: Vital signs: Vital Signs Temperature 98.6 F 09/20/22 13:36 Pulse Rate 66 09/20/22 13:36 Respiratory Rate 16 09/20/22 13:36 Blood Pressure 124/72 09/20/22 13:36 Pulse Oximetry 98 09/20/22 13:36 Oxygen Delivery Me thod Room Air 09/20/22 08:00 MDM - GI Bleed Medical Decision Making Hemoglobin 8 to discharge now down to 7 5. We will admit transfuse unit of blood and observe may need further evaluation. On the discharge there is consideration of possible pill endoscopy which may need to be set up for as an outpatient. Discussed with hospitalist orders written Medical Records I reviewed the patient's medical records. Lab Data I reviewed the patient's lab results. 09/20/22 04:45 09/20/22 04:45 Laboratory Results WBC 8.6 10^3/uL (4.0-10.0) 09/19/22 11:08 RBC 2.36 10^6/uL (4.1-5.3) L 09/19/22 11:08 Hgb 7.5 g/dL (11.7-16.6) L 09/19/22 11:08 Hct 23.6 % (42.0-52.0) L 09/19/22 11:08 MCV 100.0 fl (80-94) H 09/19/22 11:08 MCH 31.8 pg (28.0-34.0) 09/19/22 11:08 MCHC 31.8 g/dL (30.0-36.0) D 09/19/22 11:08 RDW 16.0 % (12.1-15.1) H 09/19/22 11:08 Plt Count 222 10^3/cmm (130-400) 09/19/22 11:08 MPV 9.9 fL (7.4-10.4) 09/19/22 11:08 Neut % (Auto) 83.6 % 09/19/22 11:08 Lymph % (Auto) 8.3 % 09/19/22 11:08 [place] % (Auto) 5.9 % 09/19/22 11:08 Eos % (Auto) 1.0 % 09/19/22 11:08 Baso % (Auto) 0.2 % 09/19/22 11:08 Neut # (Auto) 7.20 10^3/uL (1.8-7.7) 09/19/22 11:08 Lymph # (Auto) 0.7 10^3/uL (0.8-4.8) L 09/19/22 11:08 [place] # (Auto) 0.5 10^3/uL (0.2-0.9) 09/19/22 11:08 Eos # (Auto) 0.1 10^3/uL (0.0-0.8) 09/19/22 11:08 Baso # (Auto) 0.0 10^3/uL (0.0-0.1) 09/19/22 11:08 Nucleated RBC % (auto) 0.2 % 09/19/22 11:08 Nucleated RBCs # 0.0 /100WBC 09/19/22 11:08 Sodium 135 mmol/L (136-145) L 09/19/22 11:08 Potassium 3.3 mmol/L (3.5-5.1) L 09/19/22 11:08 Chloride 104 mmol/L (98-107) 09/19/22 11:08 Carbon Dioxide 20 mmol/L (22-29) L 09/19/22 11:08 Anion Gap 14.3 (5-19) 09/19/22 11:08 BUN 12 mg/dL (8-23) 09/19/22 11:08 Creatinine 0.7 mg/dL (0.7-1.2) 09/19/22 11:08 GFR Calculation Not Reportable 09/19/22 11:08 Glucose 110 mg/dL (65-115) 09/19/22 11:08 Calculated Osmolality 280 mOsm/kg (285-295) L 09/19/22 11:08 Calcium 7.8 mg/dL (8.5-10.5) L 09/19/22 11:08 Total Bilirubin 0.2 mg/dL (0.15-1.2) 09/19/22 11:08 AST 19 U/L (0-40) 09/19/22 11:08 ALT 18 U/L (0-41) 09/19/22 11:08 Alkaline Phosphatase 47 U/L (40-130) 09/19/22 11:08 Total Protein 6.0 g/dL (6.6-8.7) L 09/19/22 11:08 Albumin 3.3 g/dL (3.5-5.2) L 09/19/22 11:08 Globulin 2.7 g/dL (1.3-4.6) 09/19/22 11:08 Lipase 33 U/L (13-60) 09/19/22 11:08 Urine Color Yellow (Yellow) 09/19/22 11:52 Urine Appearance Clear (CLEAR) 09/19/22 11:52 Urine pH 6.5 (5-7) 09/19/22 11:52 Ur Specific [place] 1.010 (1.005-1.030) 09/19/22 11:52 Urine Protein Neg (Negative) 09/19/22 11:52 Urine Glucose (UA) Norm (Normal) 09/19/22 11:52 Urine Ketones Negative (Negative) 09/19/22 11:52 Urine Blood Neg (Negative) 09/19/22 11:52 Urine Nitrate Negative (Negative) 09/19/22 11:52 Urine Bilirubin Neg (Negative) 09/19/22 11:52 Urine Urobilinogen Norm mg/dL (Negative) 09/19/22 11:52 Ur Leukocyte Esterase Negative (Negative) 09/19/22 11:52 Blood Type O Positive 09/19/22 11:08 Rho(D) Type Positive 09/19/22 11:08 Antibody Screen Negative 09/19/22 11:08 Crossmatch See Detail 09/19/22 11:08 Discharge Plan Discharge Patient Disposition: Placed in Observation Admit Provider: Jesika Beckwith Clinical Impression: GI bleed, Anemia Coding Level of Care Code ED Flume Maker for Chg Amanuel
[2022-09-19 11:39] LABS: Alanine Aminotransferase 18 U/L (0-41); Albumin Level 3.3 g/dL (3.5-5.2); Alkaline Phosphatase 47 U/L (40-130); Anion Gap 14.3 (5-19); Aspartate Amino Transferase 19 U/L (0-40); Blood Urea Nitrogen 12 mg/dL (8-23); Calcium 7.8 mg/dL (8.5-10.5); Carbon Dioxide 20 mmol/L (22-29); Chloride 104 mmol/L (98-107); Globulin 2.7 g/dL (1.3-4.6); Glucose 110 mg/dL (65-115); Lipase 33 U/L (13-60); Osmolality Calculated 280 mOsm/kg (285-295); Potassium 3.3 mmol/L (3.5-5.1); Sodium 135 mmol/L (136-145); Total Bilirubin 0.2 mg/dL (0.15-1.2)
[2022-09-19 12:00] LABS: Add Urine Microscopic? NO
[2022-09-19 12:01] LABS: Charge for UA Resulting for Rev
[2022-09-19 12:06] LABS: Urine Appearance Clear (CLEAR); Urine Color Yellow (Yellow); pH Urine 6.5 (5-7)
[2022-09-19 12:07] LABS: Bilirubin Urine Neg (Negative); Blood Urine Neg (Negative); Glucose Urine UA Norm (Normal); Ketones Urine Negative (Negative); Leukocyte Esterase Urine Negative (Negative); Nitrate Urine Negative (Negative); Protein Urine Neg (Negative); Urobilinogen Urine Norm (Negative)
--- NOTE | 2022-09-19 12:51 | PC.PHAR ---
PTS FAMILY [facility] PTS DOCTOR HAS PLACED AMLODIPINE, LISINOPRIL, AND TAMSULOSIN ON HOLD
--- NOTE | 2022-09-19 13:29 | P.HP_ITS ---
Providers/Chief Complaint Primary Care Provider: MAURICE Ackerman Chief Complaint: Passing blood in stool, low blood pressure History of Present Illness Malik Cordova is a 72 year old male discharge from the hospital after manageme nt upper GI bleed EGD did not show any significant changes there was concern for AVM malformation he was asked to go to tertiary center for capsule endoscopy however came back multiple times in the ER for dark-colored stools. Hemoglobin today is 7.6 we have been asked to admit the patient for blood transfusion and overnight observation. Patient is hemodynamically stable. Review of Systems General: Reports: ROS unobtainable due to mental status (Due to intellectual disability) Medications/Allergies Home Medications Medication Instructions Recorded Confirmed Last Taken Type ergocalciferol (vitamin D2) 1,250 See Rx Instructions .Route 09/05/22 09/19/22 Unknown Rx mcg (50,000 unit) capsule .COMPLEX #4 caps amlodipine 2.5 mg tablet 2.5 mg PO DAILY 09/14/22 09/19/22 Unknown History atorvastatin 40 mg tablet 40 mg PO DAILY 09/14/22 09/19/22 09/19/22 History finasteride 5 mg tablet 5 mg PO DAILY 09/14/22 09/19/22 Unknown History lisinopril 20 mg tablet 20 mg PO DAILY 09/14/22 09/19/22 Unknown History sertraline 50 mg tablet 50 mg PO DAILY 09/14/22 09/19/22 09/19/22 History tamsulosin 0.4 mg capsule 0.4 mg PO DAILY 09/14/22 09/19/22 Unknown History pantoprazole 40 mg tablet,delayed 40 mg PO DAILY #30 tabs 09/16/22 09/19/22 09/19/22 Rx release (Protonix) Allergies Allergy/AdvReac Type Severity Reaction Status Date / Time No Known Allergies Allergy Verified 09/19/22 12:51 PFSH Acute PFSH: Medical History Acute upper GI bleed Anemia Anxiety BPH loc w urin obs/LUTS Developmental mental disorder Elevated PSA Hypertension Leukocytosis Melena Mixed hyperlipidemia Smoker Status post fall Syncope Surgical History History of amputation of finger of right hand History of surgery on arm Family History Brother Diabetes Hypertension Social History Smoking and tobacco status: current every day smoker (6 cigarettes/day) cigarettes Packs smoked per day: 0.5 Years cigarettes smoked: 40 Second hand smoke exposure: No Alcohol intake: never Substance/Drug Use: never Adopted: No Caregiver/support person: Yes (brother Tenzin Cordova) Lives independently: Yes Marital status: Single service: No Current occupational status: disabled Current gender identity: Male Vitals/I&O/Wt Last Vital Signs Temp 98.4 F 09/19/22 13:26 Pulse 74 09/19/22 13:26 Resp 20 H 09/19/22 13:26 BP 117/70 09/19/22 13:26 Pulse Ox 95 09/19/22 13:26 O2 Del Method Room Air 09/19/22 13:04 09/18/22 09/19/22 09/19/22 22:59 06:59 14:59 Intake Total 0 / 0 Balance 0 / 0 Weight last 48 hrs Weight 97.522 kg Physical Exam Narrative: Awake and alert Euvolemic Abdomen soft Hemodynamic stable Currently doing well on room air GCS 15 Answering my question appropriately S1, S2 Data 09/19/22 18:13 09/19/22 11:08 A&P Assessment and plan (1) Anemia: (2) GI bleed: (3) BPH loc w urin obs/LUTS: (4) Hyperglycemia: Plan Recurrent GI bleed Patient will need outpatient capsule endoscopy Currently hemodynamically stable Do 1 unit PRBC No need to to go for CT abdomen pelvis at this point However in case of any hemodynamic instability my threshold will stay low Anticipating patient will be able to go home and get outpatient capsule endoscopy No need to repeat imaging at this point Full code Clear liquid diet DVT prophylaxis: SCDs Attestations Medical Necessity Statement*: Anticipating discharge within 48 hours Diagnoses Anemia D64.9 GI bleed K92.2 BPH loc w urin obs/LUTS N40.1 Hyperglycemia R73.9
[2022-09-19 18:24] LABS: Hematocrit 23.9 % (42.0-52.0); Hemoglobin 7.6 g/dL (11.7-16.6)
[2022-09-20] VITALS (14 sets, daily range): BP systolic 98–142; BP diastolic 59–91; PULSE 51–72; RESP 14–18; TEMP 36.8–37.1; O2SAT 93–98
[2022-09-20 05:02] LABS: Basophils % 0.6 %; Eosinophils # 0.2 10^3/uL (0.0-0.8); Eosinophils % 3.5 %; Hematocrit 23.2 % (42.0-52.0); Hemoglobin 7.4 g/dL (11.7-16.6); Lymphocytes # 1.2 10^3/uL (0.8-4.8); Mean Corpuscular HGB Conc 31.9 g/dL (30.0-36.0); Mean Corpuscular Hemoglobin 31.4 pg (28.0-34.0); Mean Corpuscular Volume 98.3 fl (80-94); Mean Platelet Volume 10.2 fL (7.4-10.4); Monocytes # 0.7 10^3/uL (0.2-0.9); Monocytes % 9.4 %; Neutrophils # 4.65 10^3/uL (1.8-7.7); Neutrophils % 67.3 %; Nucleated Red Blood Cells % 0.3 %; Platelet Count 207 10^3/cmm (130-400); Red Blood Count 2.36 10^6/uL (4.1-5.3); Red Cell Distribution Width 16.4 % (12.1-15.1); White Blood Count 6.9 10^3/uL (4.0-10.0)
[2022-09-20 05:16] LABS: Anion Gap 11.3 (5-19); Blood Urea Nitrogen 10 mg/dL (8-23); Calcium 7.6 mg/dL (8.5-10.5); Carbon Dioxide 22 mmol/L (22-29); Chloride 110 mmol/L (98-107); Glucose 90 mg/dL (65-115); Magnesium 2.3 mg/dL (1.7-2.3); Osmolality Calculated 289 mOsm/kg (285-295); Potassium 3.3 mmol/L (3.5-5.1); Sodium 140 mmol/L (136-145)
[2022-09-20] MEDS: pantoprazole DR 40 mg Tablet PO ×2 (08:53→17:51)
[2022-09-20] MEDS: tamsulosin 0.4 mg Capsule PO (08:53)
--- NOTE | 2022-09-20 09:57 | P.PN_ITS ---
Subjective Subjective: This morning I spoke with the family, brother stating that patient had colonoscopy 2 to [address] Diamond, I got in touch with Dr. Diamond to know about the colonoscopy results Hemoglobin is inadequate with after blood transfusion We will give him another unit today we will keep him in the hospital Patient will need capsule endoscopy at a tertiary center Patient is hemodynamically stable for now Vitals/I&O/Wt Last Vital Signs Temp 98.2 F 09/20/22 08:00 Pulse 68 09/20/22 08:00 Resp 18 09/20/22 08:00 BP 112/66 09/20/22 08:00 Pulse Ox 95 09/20/22 08:00 O2 Del Method Room Air 09/20/22 08:00 09/19/22 09/20/22 09/20/22 22:59 06:59 14:59 Intake Total 250 / 250 480 / 480 Balance 250 / 250 480 / 480 Weight last 48 hrs Weight 97.522 kg Physical Exam Narrative: Patient is laying supine Watching television Gives simple answers Intellectual disability Hemodynamically stable currently on room air Afebrile Abdomen soft Euvolemic S1, S2 Data 09/20/22 04:45 09/20/22 04:45 A&P Assessment and plan (1) Anemia: (2) GI bleed: (3) Insomnia: (4) BPH loc w urin obs/LUTS: Plan Spoke with the brother, & Dr. Diamond As per the brother colonoscopy was done roughly 3 years ago but he is not sure a bout the findings Inadequate response to blood transfusion We will give him another unit of blood Will prep him for colonoscopy and request records from Dr Duncan' office [phone] Npo after MN SCD for dvtppx Full code Dr Beebe recommended golytely 4L and dulolax tablets but we might not needed it because colonoscopy only showed internal hemorrhoids and tuberculosis without any active stigmata of bleeding Colonoscopy 2019 report: To be faxed to [facility] Attestations Medical Necessity Statement*: zuri benitez Diagnoses Anemia D64.9 GI bleed K92.2 Insomnia G47.00 BPH loc w urin obs/LUTS N40.1
--- NOTE | 2022-09-20 10:04 | PC.CHAP ---
Pastoral Care Encounter/Spiritual Assessment Type of Contact [x] Declined station engineer chief visit [] Patient/Family/Request visit [] Outpatient visit [] Follow-up visit [] Physician referral [] Code/Alert [] Routine visit [] Staff referral [] Actively dying [] Patient sleeping [] Family support [] [] Out of room [] Palliative care [] [] Receiving care in room [] Pre-surgical visit [] Trauma [] Long length of stay [] ICU visit [] Other: Relational/Emotional Strength [] Patient feels connected with others/family/visitors/staff [] Distress [] Loneliness/isolation [] Abandonment Spirituality of Patient [] Person of Falguni [] Attends Moravian of their [place]gun[place] [] Believes in Prayer [] Reads Bible or Buddhism materials [] There are Spiritual issues to be addressed [place]rier Interventions [] Prayer [] Active listening [] Non-anxious presence [] Spiritual/emotional support [] Crisis/trauma care [] Spiritual counseling [] Bereavement support [] Provided bereavement packet [] Provided Bible/devotional materials [] Provided toy/stuffed animal, coloring book to patient or family member [] Provided Communion [] Anointing/[place] [] Salvation [] Completed spiritual assessment [] Other: Impact on Illness or Injury [] Angry [] Fearful [] Anxious [] Often cries [] Exhaustion [] Unable to work [] Unable to attend taoism [] Unable to walk/stand [] Unable to read [] Unable to drive [] Unable to eat/drink [] Unable to sleep [] Unable to be with family [] Patient intubated [] Other: Summary Declined station engineer chief visit Time spent with patient 5 mins
[2022-09-21] VITALS (7 sets, daily range): BP systolic 100–130; BP diastolic 55–80; PULSE 55–73; RESP 16–18; TEMP 36.4–37; O2SAT 95–98
[2022-09-21 05:05] LABS: Basophils % 0.5 %; Eosinophils # 0.3 10^3/uL (0.0-0.8); Eosinophils % 4.4 %; Hematocrit 26.3 % (42.0-52.0); Hemoglobin 8.4 g/dL (11.7-16.6); Lymphocytes # 1.1 10^3/uL (0.8-4.8); Lymphocytes % 18.1 %; Mean Corpuscular HGB Conc 31.9 g/dL (30.0-36.0); Mean Corpuscular Hemoglobin 31.6 pg (28.0-34.0); Mean Corpuscular Volume 98.9 fl (80-94); Monocytes # 0.5 10^3/uL (0.2-0.9); Monocytes % 7.3 %; Neutrophils # 4.23 10^3/uL (1.8-7.7); Neutrophils % 68.9 %; Nucleated Red Blood Cells % 0.3 %; Platelet Count 219 10^3/cmm (130-400); Red Blood Count 2.66 10^6/uL (4.1-5.3); White Blood Count 6.1 10^3/uL (4.0-10.0)
[2022-09-21 05:47] LABS: Anion Gap 12.3 (5-19); Blood Urea Nitrogen 6 mg/dL (8-23); Calcium 7.9 mg/dL (8.5-10.5); Carbon Dioxide 22 mmol/L (22-29); Chloride 106 mmol/L (98-107); Glucose 88 mg/dL (65-115); Osmolality Calculated 281 mOsm/kg (285-295); Potassium 3.3 mmol/L (3.5-5.1); Sodium 137 mmol/L (136-145)
[2022-09-21] MEDS: sennosides-docusate Tablet 1 TAB PO (08:55)
[2022-09-21] MEDS: pantoprazole DR 40 mg Tablet PO (08:55)
[2022-09-21] MEDS: tamsulosin 0.4 mg Capsule PO (08:55)
--- NOTE | 2022-09-21 10:47 | PM.DCS ---
Discharge Providers Date of Admission: 09/20/22 16:11 Date of Discharge: September 21, 2022 Attending Provider at Admission: Jesika Beckwith MD Attending Provider at Discharge: Jesika Beckwith MD Primary Care Provider: MAURICE Ackerman Diagnoses at Discharge Discharge Diagnosis (1) Anemia: Status: Acute (2) GI bleed: Status: Acute (3) Insomnia: Status: Acute (4) BPH loc w urin obs/LUTS: Status: Acute Reason for Visit Reason for Visit: Passing blood in stool, low blood pressure Hospital Course Hospital Course 72 male with history of BPH, likely challenged, history of hypertension, was recently discharged from the hospital after management of melanotic stools, EGD was unremarkable there were possibility for AVM however no active source was identified colonoscopy was done 2019 I got in touch with Dr. Diamond (general surgeon )who told me about the colonoscopy report ( showed internal hemorrhoids and diverticulosis,) at this point patient needs capsule endoscopy to screen the source of bleeding, during this hospitalization patient required 2 units of PRBC at the time of admission hemoglobin was 7.4 at the time of discharge after blood transfusion hemoglobin is 8.5 he has remained hemodynamically stable, he has normal B12, iron level. He has grade 1 diastolic dysfunction with preserved ejection fraction 50 to 55% EF, I will discharge him on Protonix, will hold lisinopril continue amlodipine I did talk with [facility] gastroenterology service to the get an appointment in urgent basis, fax number is [phone], I will give him referral to see Dr. Bolden at [facility] I have counseled the family that we do not have the starch and prosize mixer or surgeon to do capsule endoscopy at [facility] that is why we are giving him referral to go to [facility]. Patient does not need colonoscopy at this point because he is not showing any signs of hematochezia despite internal hemorrhoids he is experiencing melanotic stools which is a sign of upper GI bleed. Physical Exam Narrative: Patient awake and alert Sitting at the bedside Answers simple questions Abdomen soft Hemodynamically stable Currently on room air Without any distress Discharge Data Studies Completed and Pending Laboratory Results WBC 6.1 10^3/uL (4.0-10.0) 09/21/22 04:37 RBC 2.66 10^6/uL (4.1-5.3) L 09/21/22 04:37 Hgb 8.4 g/dL (11.7-16.6) L 09/21/22 04:37 Hct 26.3 % (42.0-52.0) L 09/21/22 04:37 MCV 98.9 fl (80-94) H 09/21/22 04:37 MCH 31.6 pg (28.0-34.0) 09/21/22 04:37 MCHC 31.9 g/dL (30.0-36.0) 09/21/22 04:37 RDW 16.0 % (12.1-15.1) H 09/21/22 04:37 Plt Count 219 10^3/cmm (130-400) 09/21/22 04:37 MPV 10.0 fL (7.4-10.4) 09/21/22 04:37 Neut % (Auto) 68.9 % 09/21/22 04:37 Lymph % (Auto) 18.1 % 09/21/22 04:37 [place] % (Auto) 7.3 % 09/21/22 04:37 Eos % (Auto) 4.4 % 09/21/22 04:37 Baso % (Auto) 0.5 % 09/21/22 04:37 Neut # (Auto) 4.23 10^3/uL (1.8-7.7) 09/21/22 04:37 Lymph # (Auto) 1.1 10^3/uL (0.8-4.8) 09/21/22 04:37 [place] # (Auto) 0.5 10^3/uL (0.2-0.9) 09/21/22 04:37 Eos # (Auto) 0.3 10^3/uL (0.0-0.8) 09/21/22 04:37 Baso # (Auto) 0.0 10^3/uL (0.0-0.1) 09/21/22 04:37 Nucleated RBC % (auto) 0.3 % 09/21/22 04:37 Nucleated RBCs # 0.0 /100WBC 09/21/22 04:37 Sodium 137 mmol/L (136-145) 09/21/22 04:37 Potassium 3.3 mmol/L (3.5-5.1) L 09/21/22 04:37 Chloride 106 mmol/L (98-107) 09/21/22 04:37 Carbon Dioxide 22 mmol/L (22-29) 09/21/22 04:37 Anion Gap 12.3 (5-19) 09/21/22 04:37 BUN 6 mg/dL (8-23) L 09/21/22 04:37 Creatinine 0.5 mg/dL (0.7-1.2) L 09/21/22 04:37 GFR Calculation Not Reportable 09/21/22 04:37 Glucose 88 mg/dL (65-115) 09/21/22 04:37 Calculated Osmolality 281 mOsm/kg (285-295) L 09/21/22 04:37 Calcium 7.9 mg/dL (8.5-10.5) L 09/21/22 04:37 Magnesium 2.3 mg/dL (1.7-2.3) 09/20/22 04:45 Total Bilirubin 0.2 mg/dL (0.15-1.2) 09/19/22 11:08 AST 19 U/L (0-40) 09/19/22 11:08 ALT 18 U/L (0-41) 09/19/22 11:08 Alkaline Phosphatase 47 U/L (40-130) 09/19/22 11:08 Total Protein 6.0 g/dL (6.6-8.7) L 09/19/22 11:08 Albumin 3.3 g/dL (3.5-5.2) L 09/19/22 11:08 Globulin 2.7 g/dL (1.3-4.6) 09/19/22 11:08 Lipase 33 U/L (13-60) 09/19/22 11:08 Urine Color Yellow (Yellow) 09/19/22 11:52 Urine Appearance Clear (CLEAR) 09/19/22 11:52 Urine pH 6.5 (5-7) 09/19/22 11:52 Ur Specific [place] 1.010 (1.005-1.030) 09/19/22 11:52 Urine Protein Neg (Negative) 09/19/22 11:52 Urine Glucose (UA) Norm (Normal) 09/19/22 11:52 Urine Ketones Negative (Negative) 09/19/22 11:52 Urine Blood Neg (Negative) 09/19/22 11:52 Urine Nitrate Negative (Negative) 09/19/22 11:52 Urine Bilirubin Neg (Negative) 09/19/22 11:52 Urine Urobilinogen Norm mg/dL (Negative) 09/19/22 11:52 Ur Leukocyte Esterase Negative (Negative) 09/19/22 11:52 Blood Type O Positive 09/19/22 11:08 Rho(D) Type Positive 09/19/22 11:08 Antibody Screen Negative 09/19/22 11:08 Crossmatch See Detail 09/19/22 11:08 Vitals Last Vital Signs Temp 97.6 F 09/21/22 08:09 Pulse 73 09/21/22 08:09 Resp 17 09/21/22 08:09 BP 105/65 09/21/22 08:09 Pulse Ox 96 09/21/22 08:09 O2 Del Method Room Air 09/21/22 08:00 Discharge Plan Discharge Patient Disposition: Home Condition: Stable Prescriptions: Continued ergocalciferol (vitamin D2) 1,250 mcg (50,000 unit) capsule See Rx Instructions .ROUTE .COMPLEX Qty: 4 0RF Dose Instruction: TAKE ONE CAPSULE BY MOUTH WEEKLY Rx Instructions: TAKE ONE CAPSULE BY MOUTH WEEKLY atorvastatin 40 mg tablet 40 mg PO DAILY amlodipine 2.5 mg tablet 2.5 mg PO DAILY Hold Instructions: Resume on 09/23/22. Monitor the B/ AT HOME KEEP A LOG OF IT CALL THE PCP OFFICE BEFORE RESUMING tamsulosin 0.4 mg capsule 0.4 mg PO DAILY sertraline 50 mg tablet 50 mg PO DAILY finasteride 5 mg tablet 5 mg PO DAILY Changed pantoprazole [Protonix] 40 mg tablet,delayed release (DR/EC) 40 mg PO BIDWMEAL Qty: 60 3RF Discontinued lisinopril 20 mg tablet 20 mg PO DAILY Hold Instructions: Resume on 09/23/22. Monitor the B/ AT HOME KEEP A LOG OF IT CALL THE PCP OFFICE BEFORE RESUMING Discharge Orders: Discharge Order (Routine); Ordered 09/21/22 Ordered By: Jesika Beckwith Referrals: Carlitos Bolden MD [Referring] - 4-7 days (fax [phone] andrés it urgent ) Penny Barahona FNP [Primary Care Provider] - 09/24/22 9:20 am Discharge Diet: GI Soft Patient Instructions: Opioid Safety Discharge Attestations Time Spent in Discharge Care*: greater than 30 min Quality Metrics Clinical Quality Measures [ No reported AMI, CVA or VTE this stay] Coding Level of Care Code Acute Code for Chg Fwd Diagnoses Anemia D64.9 GI bleed K92.2 Insomnia G47.00 BPH loc w urin obs/LUTS N40.1
== END 2022-09-21 12:10 | disposition home or self-care (01) | DRG 812 ==
LOC: ER 13:19 → MEDSURG 16:12
PROVIDERS: Physician Assistant; Admitting Provider Internal Medicine; Emergency Provider Family Medicine; PCP Nurse Practitioner Family; Visit Provider Internal Medicine
DX: D64.9 Anemia, unspecified (principal); K92.1 Melena; N40.1 Benign prostatic hyperplasia with lower urinary tract symptoms; K64.8 Other hemorrhoids; K57.90 Diverticulosis of intestine, part unspecified, without perforation or abscess without bleeding; F41.9 Anxiety disorder, unspecified; I10 Essential (primary) hypertension; E78.2 Mixed hyperlipidemia; F17.210 Nicotine dependence, cigarettes, uncomplicated; R73.9 Hyperglycemia, unspecified
CPT/HCPCS: 36415; 36430; 80048; 80053; 81003; 83690; 83735; 85014; 85018; 85025; 86850; 86900; 86920; 99285; G0378; P9016; P9040

== ENCOUNTER 2024-09-05 19:19 | Emergency (ER) | payer MEDICAID, SELFPAY ==
[2024-09-05 19:36] VITALS: BP 118/81; PULSE 82; RESP 22; TEMP 36.9; O2SAT 94; BMI 33.5
--- NOTE | 2024-09-05 19:42 | CTR_ITS ---
PROCEDURE INFORMATION: Exam: CT Head Without Contrast Exam date and time: 09/05/2024 8:09 PM Age: 74 years old Clinical indication: Altered mental status/memory loss and dizziness; EMS arrival for dizziness with confusion; Additional info: Dizzy AMS TECHNIQUE: Imaging protocol: Computed tomography of the head without contrast. Radiation optimization: All CT scans at this facility use at least one of these dose optimization techniques: automated exposure control; mA and/or kV adjustment per patient size (includes targeted exams where dose is matched to clinical indication); or iterative reconstruction. COMPARISON: CT head wo con* [id number] 09/13/2022 7:27 PM RADIATION DOSE METRICS: Total DLP (mGy-cm): 1129.98 FINDINGS: Brain: No focal hemorrhage or midline shift is identified. The ventricles and parenchyma show moderate atrophy and chronic bicerebral white matter ischemic change. A few scattered old lacunes are likely. Cerebral ventricles: No ventriculomegaly or evidence of hydrocephalus. Paranasal sinuses: [id number] diffuse ethmoid opacity. Mastoid air cells: Visualized mastoid air cells are well aerated. Bones: No displaced skull fracture is noted. Soft tissues: Unremarkable. Vasculature: Diffuse vascular calcifications are present. Other findings: The exam is motion limited. CT/CT head wo con* [id number] IMPRESSION: 1. No acute intracranial hemorrhage. 2. Moderate age-related changes have mildly progressed from 2 years ago. A few other chronic/incidental findings above.
--- NOTE | 2024-09-05 19:42 | XRR_ITS ---
PROCEDURE INFORMATION: Exam: XR Chest Exam date and time: 09/05/2024 7:50 PM Age: 74 years old Clinical indication: EMS arrival for AMS; Additional info: Dizzy, AMS TECHNIQUE: Imaging protocol: Radiologic exam of the chest. Views: 1 view. COMPARISON: CR (CHEST, ) 09/13/2022 7:13 PM FINDINGS: Lungs: Diffuse interstitial lung scarring likely. No consolidation. Pleural spaces: Unremarkable. No pleural effusion. No pneumothorax. Heart/Mediastinum: Stable moderate plaque with cardiomegaly. Bones/joints: Unremarkable. XR/XR chest 1V portable [id number] IMPRESSION: 1. No definite acute finding. 2. A few chronic/incidental findings above.
--- NOTE | 2024-09-05 19:43 | ECG_ITS ---
[facility] Date: 2024-09-05 Pat Name: Malik Cordova Department: Room: Gender: Male Contact Manager: Kevin : 1950 Requested By: Todd Mark Order Number: [id number] Juaquin MD: Rodriguez Alejandra M.D. Measurements Intervals [place] Rate: 86 P: -1 [place]: 163 QRS: 19 QRSD: 117 T: 9 QT: 379 QTc: 454 Interpretive Statements SINUS RHYTHM WITH OCCASIONAL VENTRICULAR PREMATURE COMPLEXES MODERATE INTRAVENTRICULAR CONDUCTION DELAY [110+ ms QRS DURATION] NONSPECIFIC T-WAVE ABNORMALITY Compared to ECG 09/14/2022 02:04:49 Ventricular premature complex(es) now present Intraventricular conduction delay now present T-wave abnormality still present Electronically Signed On 09-08-2024 11:41:18 CDT by Rodriguez Alejandra M.D. [id number]
[2024-09-05 20:11] LABS: Basophils # 0.1 10^3/uL (0.0-0.1); Basophils % 0.5 %; Eosinophils # 0.1 10^3/uL (0.0-0.8); Eosinophils % 1.4 %; Hematocrit 40.4 % (37-53); Lymphocytes # 0.8 10^3/uL (0.8-4.8); Lymphocytes % 7.6 %; Mean Corpuscular HGB Conc 33.9 g/dL (30-55); Mean Corpuscular Hemoglobin 31.3 pg (27-33); Mean Corpuscular Volume 92.2 fl (82-101); Mean Platelet Volume 10.2 fL (7.4-10.4); Monocytes # 0.8 10^3/uL (0.2-0.9); Monocytes % 7.6 %; Neutrophils # 8.34 10^3/uL (1.8-7.7); Neutrophils % 82.5 %; Nucleated Red Blood Cells % 0 %; Platelet Count 181 10^3/cmm (157-399); Red Blood Count 4.38 10^6/uL (3.85-5.65); Red Cell Distribution Width 13.3 % (12.1-15.1); White Blood Count 10.11 10^3/uL (3.29-11.43)
[2024-09-05 20:28] LABS: Lactic Sepsis W/Reflex 1.4 mmol/L (0.5-2.2)
[2024-09-05 20:30] LABS: Troponin(5th) Baseline 15 ng/L (0-15)
[2024-09-05 20:35] LABS: Alanine Aminotransferase 14 U/L (0-41); Albumin Level 3.9 g/dL (3.5-5.2); Alkaline Phosphatase 62 U/L (40-130); Anion Gap 17.3 (5-19); Aspartate Amino Transferase 17 U/L (0-40); Blood Urea Nitrogen 15 mg/dL (8-23); C Reactive Protein 22.1 mg/L (0.0-4.9); Carbon Dioxide 21 mmol/L (22-29); Chloride 102 mmol/L (98-107); Creatinine Clr Calc Pharmacy 100.1235; Globulin 3.2 g/dL (1.3-4.6); Glucose 118 mg/dL (65-115); Magnesium 1.9 mg/dL (1.7-2.3); Osmolality Calculated 286 mOsm/kg (285-295); Potassium 3.3 mmol/L (3.5-5.1); Sodium 137 mmol/L (136-145); Total Bilirubin 0.6 mg/dL (0.15-1.2); Total Protein 7.1 g/dL (6.6-8.7)
[2024-09-05 21:25] VITALS: BP 122/81; PULSE 78; O2SAT 93
[2024-09-05] MEDS: sodium chloride 0.9% 1,000 ML 999 ML IV (21:41)
[2024-09-05 21:59] VITALS: BP 135/66; PULSE 77; O2SAT 93
--- NOTE | 2024-09-05 22:05 | W.ED.DIZZY ---
HPI - Dizziness General: Chief Complaint: Dizziness Stated Complaint: dizzy,weakness, fall, sob Time Seen by Provider: 09/05/24 19:35 History of Present Illness: HPI Narrative: 74-year-old male patient presenting with dizziness. He lives at home with family. They say he has been congested, and having sinus pressure for around a week now. He has had a cough. Some congestion. No fever. Yesterday he began to complain of dizziness. He seemed to be struggling to breathe. He was taken to the emergency department at outside facility, chest x-ray was negative, labs were evidently negative, and was discharged. He is fallen twice since then. He seems to lean to the right now, which he does not usually do. He has not complains of focal weakness or headache. Related Data Home Medications ?Medication ?Instructions ?Recorded ?Confirmed amlodipine 2.5 mg tablet 2.5 mg PO DAILY 09/14/22 09/19/22 atorvastatin 40 mg tablet 40 mg PO DAILY 09/14/22 09/19/22 finasteride 5 mg tablet 5 mg PO DAILY 09/14/22 09/19/22 sertraline 50 mg tablet 50 mg PO DAILY 09/14/22 09/19/22 tamsulosin 0.4 mg capsule 0.4 mg PO DAILY 09/14/22 09/19/22 Previous Rx's ?Medication ?Instructions ?Recorded ergocalciferol (vitamin D2) 1,250 See Rx Instructions .Route 09/05/22 mcg (50,000 unit) capsule .COMPLEX #4 caps pantoprazole 40 mg tablet,delayed 40 mg PO BIDWMEAL #60 tabs 09/21/22 release (Protonix) amoxicillin 875 mg-potassium 1 tab PO BID #20 tabs 09/05/24 clavulanate 125 mg tablet polymyxin B sulfate 10,000 1 drp ophthalmic (eye) QID 5 days 09/06/24 unit-trimethoprim 1 mg/mL eye drops #10 mL Allergies Allergy/AdvReac Type Severity Reaction Status Date / Time No Known Allergies Allergy Verified 09/19/22 12:51 [facility] ED PFS: Medical History Acute upper GI bleed Anemia Anxiety BPH loc w urin obs/LUTS Developmental mental disorder Elevated PSA Hypertension Leukocytosis Melena Mixed hyperlipidemia Smoker Status post fall Syncope Surgical History History of amputation of finger of right hand History of surgery on arm Family History Brother Diabetes Hypertension Social History Smoking and tobacco/nicotine status: current every day tobacco/nicotine user cigarettes Packs smoked per day: 0.5 Years cigarettes smoked: 40 Second hand smoke exposure: No Alcohol intake: never Substance/Drug Use: never Adopted: No Caregiver/support person: Yes (brother Tenzin Cordova) Lives independently: Yes Marital status: Single service: No Current occupational status: disabled Current gender identity: Male Physical Exam Const: COMMON NORMALS: no acute distress GENERAL APPEARANCE: cooperative and frail appearing (Mildly) HENMT: COMMON NORMALS: normocephalic, atraumatic and Normal external nose present HEAD & SCALP: normocephalic and atraumatic FACE & SINUS: normal facial exam and face symmetric NOSE: Normal external nose present and Abnormal mucous membranes and turbinates present boggy and erythematous MOUTH: tongue normal Eye: COMMON NORMALS: Equal, round and reactive pupils present and EOMs intact bilaterally CONJUNCTIVA: Yes conjunctival abnormal positive right conjunctival injection and discharge PUPIL: Yes Equal, round and reactive pupils present Neck/C-Spine: GENERAL: Yes trachea midline Chest: CHEST: Yes Symmetrical chest wall rise Resp: COMMON NORMALS: normal respiratory effort, No retractions and No use of accessory muscles AUSCULTATION: wheezes left lower Cardio: COMMON NORMALS: regular rate and regular rhythm RATE: regular rate RHYTHM: regular rhythm GI: COMMON NORMALS: Normal to inspection, nondistended, normoactive bowel sounds present Extremity: COMMON NORMALS: no pedal edema Neuro: [place] COMA SCALE: document GCS findings [place] coma scale eye opening: Spontaneous [place] coma scale verbal response: Orientated [place] coma scale motor response: [place] commands [place] coma scale total score: 15 SENSORY EXAM: Yes extremities (intact) Psych: COMMON NORMALS: speech normal SPEECH: Yes normal speech Skin: COMMON NORMALS: no rashes or lesions noted GENERAL SKIN EXAM: no rashes or lesions noted Course Vital Signs: Vital signs: Vital Signs Temperature 98.5 F 09/05/24 19:36 Pulse Rate 75 09/06/24 00:21 Respiratory Rate 14 09/06/24 00:21 Blood Pressure 127/72 09/06/24 00:21 Pulse Oximetry 97 09/06/24 00:21 Oxygen Delivery Me thod Room Air 09/05/24 23:00 MDM - Dizziness Medical Decision Making Vitals are normal. CBC is normal. Potassium is low at 3.3. Chest x-ray is nonacute. CT of the head is nonacute, although there is maxillary sinus opacity.. CRP is mildly elevated. Swabs for flu COVID and RSV are negative. Findings of likely right-sided maxillary sinusitis, with conjunctivitis on that side. Family had been giving him Benadryl for congestion prior, which may have increase his risk of fall as well. Lab Data 09/05/24 20:02 09/05/24 20:02 Radiology Impressions Chest X-Ray 09/05/24 19:42 IMPRESSION: 1. No definite acute finding. 2. A few chronic/incidental findings above. Head CT 09/05/24 19:42 IMPRESSION: 1. No acute intracranial hemorrhage. 2. Moderate age-related changes have mildly progressed from 2 years ago. A few other chronic/incidental findings above. Laboratory Results WBC 10.11 10^3/uL (3.29-11.43) 09/05/24 20:02 RBC 4.38 10^6/uL (3.85-5.65) 09/05/24 20:02 Hgb 13.70 g/dL (11.27-16.99) 09/05/24 20:02 Hct 40.4 % (37-53) 09/05/24 20:02 MCV 92.2 fl (82-101) 09/05/24 20:02 MCH 31.3 pg (27-33) 09/05/24 20:02 MCHC 33.9 g/dL (30-55) 09/05/24 20:02 RDW 13.3 % (12.1-15.1) 09/05/24 20:02 Plt Count 181 10^3/cmm (157-399) 09/05/24 20:02 MPV 10.2 fL (7.4-10.4) 09/05/24 20:02 Neut % (Auto) 82.5 % 09/05/24 20:02 Lymph % (Auto) 7.6 % 09/05/24 20:02 [place] % (Auto) 7.6 % 09/05/24 20:02 Eos % (Auto) 1.4 % 09/05/24 20:02 Baso % (Auto) 0.5 % 09/05/24 20:02 Neut # (Auto) 8.34 10^3/uL (1.8-7.7) H 09/05/24 20:02 Lymph # (Auto) 0.8 10^3/uL (0.8-4.8) 09/05/24 20:02 [place] # (Auto) 0.8 10^3/uL (0.2-0.9) 09/05/24 20:02 Eos # (Auto) 0.1 10^3/uL (0.0-0.8) 09/05/24 20:02 Baso # (Auto) 0.1 10^3/uL (0.0-0.1) 09/05/24 20:02 Nucleated RBC % (auto) 0 % 09/05/24 20:02 Nucleated RBCs # 0.0 /100WBC 09/05/24 20:02 Sodium 137 mmol/L (136-145) 09/05/24 20:02 Potassium 3.3 mmol/L (3.5-5.1) L 09/05/24 20:02 Chloride 102 mmol/L (98-107) 09/05/24 20:02 Carbon Dioxide 21 mmol/L (22-29) L 09/05/24 20:02 Anion Gap 17.3 (5-19) 09/05/24 20:02 BUN 15 mg/dL (8-23) 09/05/24 20:02 Creatinine 0.8 mg/dL (0.7-1.2) 09/05/24 20:02 GFR Calculation Not Reportable 09/05/24 20:02 Glucose 118 mg/dL (65-115) H 09/05/24 20:02 Calculated Osmolality 286 mOsm/kg (285-295) 09/05/24 20:02 Lactic Acid 1.4 mmol/L (0.5-2.2) 09/05/24 20:02 Calcium 9.0 mg/dL (8.5-10.5) 09/05/24 20:02 Magnesium 1.9 mg/dL (1.7-2.3) 09/05/24 20:02 Total Bilirubin 0.6 mg/dL (0.15-1.2) 09/05/24 20:02 AST 17 U/L (0-40) 09/05/24 20:02 ALT 14 U/L (0-41) 09/05/24 20:02 Alkaline Phosphatase 62 U/L (40-130) 09/05/24 20:02 Troponin T Baseline 15 ng/L (0-15) 09/05/24 20:02 Troponin T 120 Minute 14.60 ng/L (0-15) 09/05/24 22:14 Delta Troponin T -0.40 ABS# (0-10) L 09/05/24 22:14 C-Reactive Protein 22.1 mg/L (0.0-4.9) H 09/05/24 20:02 Total Protein 7.1 g/dL (6.6-8.7) 09/05/24 20:02 Albumin 3.9 g/dL (3.5-5.2) 09/05/24 20:02 Globulin 3.2 g/dL (1.3-4.6) 09/05/24 20:02 Influenza A (PCR) Negative (Negative) 09/05/24 21:27 Influenza Type B (PCR) Negative (Negative) 09/05/24 21:27 RSV (PCR) Negative (Negative) 09/05/24 21:27 SARS-CoV-2 (PCR) Negative (Negative) 09/05/24 21:27 All radiology interpretation(s) finalized by discharge Discharge Plan Discharge Patient Disposition: Home Clinical Impression: Sinusitis, acute maxillary Condition: Stable Prescriptions: New amoxicillin-pot clavulanate 875-125 mg tablet 1 tab PO BID Qty: 20 0RF polymyxin B sulf-trimethoprim 10,000 unit- 1 mg/mL drops 1 drp ophthalmic (eye) QID 5 Days Qty: 10 0RF No Action ergocalciferol (vitamin D2) 1,250 mcg (50,000 unit) capsule See Rx Instructions .ROUTE .COMPLEX Qty: 4 0RF Dose Instruction: TAKE ONE CAPSULE BY MOUTH WEEKLY Rx Instructions: TAKE ONE CAPSULE BY MOUTH WEEKLY atorvastatin 40 mg tablet 40 mg PO DAILY amlodipine 2.5 mg tablet 2.5 mg PO DAILY tamsulosin 0.4 mg capsule 0.4 mg PO DAILY sertraline 50 mg tablet 50 mg PO DAILY finasteride 5 mg tablet 5 mg PO DAILY Protonix 40 mg tablet,delayed release (DR/EC) 40 mg PO BIDWMEAL Qty: 60 3RF Discharge Orders: Discharge ED (Routine); Ordered 09/05/24 Ordered By: Todd Martinez Referrals: Penny Barahona FNP [Nurse Practitioner, Family Practice] Patient Instructions: Sinusitis (ED), Opioid Safety, Pain Management Activity Restrictions/Additional Instructions: Use the eyedrops every 4 hours while awake for 5 days. Antibiotics as directed. Return for worsening symptoms despite treatment. Make sure you stay hydrated. See your doctor next week. 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
[2024-09-05 22:06] LABS: Influenza A NEGATIVE (Negative); Influenza B NEGATIVE (Negative); Respiratory Syncytial Virus Ce NEGATIVE (Negative); SARS-CoV-2 PCR NEGATIVE (Negative)
[2024-09-05 22:30] VITALS: BP 128/84; PULSE 71; O2SAT 95
[2024-09-05 23:00] VITALS: PULSE 86; O2SAT 93
--- NOTE | 2024-09-05 23:15 | PC.NURSE ---
Med tech ambulated pt out in hallway, per med tech pt walked over 100ft and did well, per pt family they state that pt is not ambulating as well as pt normally does at home.
[2024-09-05 23:40] VITALS: BP 125/84; PULSE 66; RESP 16; O2SAT 94
--- NOTE | 2024-09-05 23:40 | PC.NURSE ---
this nurse assumed pt care from KARIN Sanders at 2300.
[2024-09-06] MEDS: cefTRIAXone 1,000 mg SDV 1000 MG IVP (00:12)
[2024-09-06 00:21] VITALS: BP 127/72; PULSE 75; RESP 14; O2SAT 97
== END 2024-09-06 00:13 | disposition home or self-care (01) ==
PROVIDERS: Emergency Provider Emergency Medicine; PCP Nurse Practitioner Family
DX: J01.00 Acute maxillary sinusitis, unspecified (principal); Z11.52 Encounter for screening for COVID-19; F17.210 Nicotine dependence, cigarettes, uncomplicated; E78.2 Mixed hyperlipidemia; I10 Essential (primary) hypertension
CPT/HCPCS: 36415; 70450; 71045; 80053; 83605; 83735; 84484; 85025; 86140; 87040; 87637; 93005; 96361; 96374; 99285; J0696; J7030; J9999